=== PATIENT | female | born 1945 | race Caucasian/White ===

== ENCOUNTER 2016-10-21 08:58 | Inpatient (IN) | payer MEDICARE ==
[~2016-10-21 08:58] MED LIST: AMBI5TAB; ATEN1TAB73; LIBRAX PO; PREV15CA20 PO
[2016-10-21 09:00] VITALS: BP 160/72; PULSE 70; RESP 15; TEMP 98.6
[2016-10-21] MEDS ORDERED: SODIUM CHLORIDE 0.9% FLUSH 10 ML FLUSH IV FLUSH PRN ×2 (09:30→14:00)
[2016-10-21] MEDS ORDERED: ONDANSETRON HCL 4 MG/2 ML VIAL IVP ONE (09:30)
[2016-10-21 09:55] LABS: AUTOMATED NEUTROPHIL # 11.8 TH/MM3 (1.8-7.7); BASOPHIL % 0.2 % (0.0-2.0); HEMATOCRIT 42.7 % (35.0-46.0); HEMO FLAGS DIFF FINAL; LYMPH % 4.5 % (9.0-44.0); LYMPHOCYTE # 0.6 TH/MM3 (1.0-4.8); MEAN CELL VOLUME 90.6 FL (80.0-100.0); MEAN CORPUSCULAR HEMOGLOBIN 31.5 PG (27.0-34.0); MEAN CORPUSCULAR HGB CONC 34.8 % (32.0-36.0); MONO % 8.6 % (0.0-8.0); NEUT % 86.7 % (16.0-70.0); PLATELET COUNT 123 TH/MM3 (150-450); RED BLOOD COUNT 4.71 MIL/MM3 (4.00-5.30); WHITE BLOOD COUNT 13.7 TH/MM3 (4.0-11.0)
[2016-10-21 09:58] VITALS: O2SAT 97
[2016-10-21 10:02] LABS: BACTERIA, URINE FEW /hpf; BLOOD, URINE LARGE (NEG); COMMENT (UR) CULT NOT INDICATED; CULTURE IF INDICATED CULT NOT INDICATED; GLUCOSE,URINE TRACE mg/dL (NEG); KETONE, URINE 10 mg/dL (NEG); MUCUS URINE FEW /lpf (OCC); NITRITE,URINE NEG (NEG); SQUAMOUS EPITHELIAL CELL URINE <1 /hpf (0-5); URINE COLOR DARK-YELLOW (YELLW/STRAW)
[2016-10-21 10:16] LABS: ANION GAP 10 MEQ/L (5-15); BICARBONATE 27.2 MEQ/L (21.0-32.0); BLOOD UREA NITROGEN 13 MG/DL (7-18); CHLORIDE 102 MEQ/L (98-107); POTASSIUM 3.5 MEQ/L (3.5-5.1); SODIUM (NA) 139 MEQ/L (136-145)
[2016-10-21 10:32] LABS: ALKALINE PHOSPHATASE 148 U/L (45-117); ALT (GPT) 2074 U/L (10-53); AST (GOT) 2192 U/L (15-37); TOTAL BILIRUBIN ADULT 3.8 MG/DL (0.2-1.0)
[2016-10-21] MEDS ORDERED: PIPERACIL-TAZO 3.375 GM PREMIX 50 ML IV ONE (11:15)
[2016-10-21] MEDS ORDERED: SODIUM CHLOR 0.9% 1000 ML INJ 1,000 ML IV ONE (11:15)
--- NOTE | 2016-10-21 11:51 | PD ---
HPI Chief Complaint: GI Complaint Time Seen by Provider: 09:12 Travel History International Travel<30 days: No Contact w/Intl Traveler<30days: No History of Present Illness HPI 71-year-old female arrives to the ER complaining of epigastric abdominal pain. She developed a sudden heavy feeling in the epigastrium last night. She reported no benefit from Nexium. She reports frequent belching. She reports similar though much less severe pain following fatty foods previously. She's had no fever. The pain is much worse with palpation. At rest lying on the bed the patient has minimal to no pain. PFSH Past Medical History Hypertension: Yes Menopausal: Yes Social History Alcohol Use: Yes Tobacco Use: No Allergies-Medications (Allergen,Severity, Reaction): Coded Allergies: Demerol (Verified Allergy, Severe, nausea/passing out, 09/05/08) Dulcolax (Verified Allergy, Severe, passes out, 09/05/08) Novocain (Verified Allergy, Severe, increased heart rate, 09/05/08) Reported Meds & Prescriptions Reported Meds & Active Scripts Active Reported Ambien (Zolpidem Tartrate) 5 Mg Tab 0 Mg UNKNOWN DOSE Prevacid (Lansoprazole) 15 Mg Capcr 0 Mg PO DAILY UNKNOWN DOSE Librax (Chlordiazepoxide/Clidinium) 5 Mg Cap 5 Mg PO DIRECTED Tenormin (Atenolol) 25 Mg Tab 0 Mg UNKNOWN DOSE Review of Systems Except as stated in HPI: all other systems reviewed are Neg General / Constitutional: No: Fever Physical Exam Narrative GENERAL: 71-year-old female pleasant no acute distress SKIN: Focused skin assessment warm/dry. HEAD: Atraumatic. Normocephalic. EYES: Pupils equal and round. No scleral icterus. No injection or drainage. ENT: No nasal bleeding or discharge. Mucous membranes pink and moist. NECK: Trachea midline. No JVD. CARDIOVASCULAR: Regular rate and rhythm. No murmur appreciated. RESPIRATORY: No accessory muscle use. Clear to auscultation. Breath sounds equal bilaterally. GASTROINTESTINAL: Abdomen soft, non-tender, nondistended. Hepatic and splenic margins not palpable. MUSCULOSKELETAL: No obvious deformities. No clubbing. No cyanosis. No edema. NEUROLOGICAL: Awake and alert. No obvious cranial nerve deficits. Motor grossly within normal limits. Normal speech. PSYCHIATRIC: Appropriate mood and affect; insight and judgment normal. Data Data Last Documented VS Vital Signs Date Time Temp Pulse Resp B/P Pulse Ox O2 Delivery O2 Flow Rate FiO2 10/21/16 09:58 97 10/21/16 09:00 98.6 70 15 160/72 Vital signs reviewed Orders Complete Blood Count With Diff (10/21/16 09:26) Comprehensive Metabolic Panel (10/21/16:26) Lipase (10/21/16:26) Urinalysis - C+S If Indicated (10/21/16:) Ct Abd/Pel W Iv Contrast(Rout) (10/21/16:26) Iv Access Insert/Monitor (10/21/16:26) Ecg Monitoring (10/21/16:) Oximetry (10/21/16:) Ondansetron Inj (Zofran Inj) (10/21/16 09:30) Sodium Chloride 0.9% Flush (Ns Flush) (10/21/16 09:30) Sodium Chlor 0.9% 1000 Ml Inj (Ns 1000 M (10/21/16 11:15) Piperacil-Tazo 3.375 Gm Premix (Zosyn 3. (10/21/16 11:15) Iohexol 350 Inj (Omnipaque 350 Inj) (10/21/16 11:58) Consult Ryan Nfs (10/21/16 ) Admit Order (Ed Use Only) (10/21/16 13:18) Mri Mrcp W/O Contrast (10/21/16 ) Labs Laboratory Tests Test 10/21/16 09:40 White Blood Count 13.7 TH/MM3 Red Blood Count 4.71 MIL/MM3 Hemoglobin 14.8 GM/DL Hematocrit 42.7 % Mean Corpuscular Volume 90.6 FL Mean Corpuscular Hemoglobin 31.5 PG Mean Corpuscular Hemoglobin 34.8 % Concent Red Cell Distribution Width 13.0 % Platelet Count 123 TH/MM3 Mean Platelet Volume 9.3 FL Neutrophils (%) (Auto) 86.7 % Lymphocytes (%) (Auto) 4.5 % Monocytes (%) (Auto) 8.6 % Eosinophils (%) (Auto) 0.0 % Basophils (%) (Auto) 0.2 % Neutrophils # (Auto) 11.8 TH/MM3 Lymphocytes # (Auto) 0.6 TH/MM3 Monocytes # (Auto) 1.2 TH/MM3 Eosinophils # (Auto) 0.0 TH/MM3 Basophils # (Auto) 0.0 TH/MM3 CBC Comment DIFF FINAL Differential Comment Urine Color DARK-YELLOW Urine Turbidity CLEAR Urine pH 6.0 Urine Specific [place] 1.017 Urine Protein 30 mg/dL Urine Glucose (UA) TRACE mg/dL Urine Ketones 10 mg/dL Urine Occult Blood LARGE Urine Nitrite NEG Urine Bilirubin MOD Urine Urobilinogen 2.0 MG/DL Urine Leukocyte Esterase NEG Urine RBC 149 /hpf Urine WBC 2 /hpf Urine Squamous Epithelial <1 /hpf Cells Urine Bacteria FEW /hpf Urine Mucus FEW /lpf Microscopic Urinalysis Comment CULT NOT INDICATED Sodium Level 139 MEQ/L Potassium Level 3.5 MEQ/L Chloride Level 102 MEQ/L Carbon Dioxide Level 27.2 MEQ/L Anion Gap 10 MEQ/L Blood Urea Nitrogen 13 MG/DL Creatinine 0.92 MG/DL Random Glucose 137 MG/DL Calcium Level 8.9 MG/DL Total Bilirubin 3.8 MG/DL Aspartate Amino Transf 2192 U/L (AST/SGOT) Alanine Aminotransferase 2074 U/L (ALT/SGPT) Alkaline Phosphatase 148 U/L Total Protein 7.2 GM/DL Albumin 3.8 GM/DL Lipase 09519 U/L [facility] Medical Decision Making Medical Screen Exam Complete: Yes Emergency Medical Condition: Yes Medical Record Reviewed: Yes Differential Diagnosis Constipation, Gastritis, Acute Cholecystitis, Biliary Colic, Pancreatitis, ALARCON , Hepatitis, Bowel Obstruction, Cystitis, Mesenteric Ischemia, AAA, Appendicitis , Renal Stone/Hydronephrosis, GERD, perforated viscous Narrative Course CBC & BMP Diagram 10/21/16 09:40 Bilirubin 3.8 AST 2192 ALT 2074 Alk phosphatase 148 Lipase 16,660 Urinalysis reveals hematuria without UTI Last 24 hours Impressions Abdomen/Pelvis CT 10/21/16 0926 Signed Impressions: Service Date/Time: Friday, October 21, 2016 11:41 - CONCLUSION: 1. Steatosis. 2. Distended gallbladder with abnormal gallbladder wall thickening and cholelithiasis. 3. Pancreatic low attenuation masses are seen likely cystic but incompletely evaluated on this study. Minimal stranding in the peripancreatic fat is noted which can indicate mild pancreatitis. 4. Bilateral renal cysts. 5. Inguinal hernias. 6. Uterine fibroid. Benedicto Mcclure MD Patient has markedly elevated LFTs as well as lipase. CT is concerning for choledocholithiasis and or possibly cholecystitis. Zosyn and IV fluids started. The case was discussed with general surgery, Dr. Fischer. The case was discussed with Dr. Quigley. MRCP ordered. Pt will be admitted to FMR service, d/w Dr Judge. Critical Care Narrative Aggregate critical care time was 35 minutes. Time to perform other separately billable procedures was not included in the critical care time. My time did not include minutes spent treating any other patients simultaneously or on activities that did not directly contribute to the patient's treatment. The services I provided to this patient were to treat and/or prevent clinically significant deterioration that could result in: Septic shock, perforated bowel I provided critical care services requiring my management, as noted below: Chart data review, documentation time, medication orders and management, vital sign assessments/reviewing monitor data, ordering and reviewing lab tests, ordering and interpreting/reviewing x-rays and diagnostic studies, care of the patient and discussion of the patient with the admitting physicians. Critical care Diagnosis Primary Impression: Pancreatitis Qualified Code: K85.90 - Acute pancreatitis, unspecified complication status, unspecified pancreatitis type Additional Impressions: Hyperbilirubinemia Elevated LFTs Admitting Information Admitting Physician Requests: it Curt Higuera MD Oct 21, 2016 11:51
[2016-10-21] MEDS ORDERED: IOHEXOL 350 MG/ML 10 ML VIAL (for RAD DIAG) IV ONE (11:58)
--- NOTE | 2016-10-21 12:23 | RADRPT ---
EXAM DATE/TIME: 10/21/2016 11:41 [facility] COMPARISON: No previous studies available for comparison. INDICATIONS : Upper epigastric pain. IV CONTRAST: 68 cc Omnipaque 350 (iohexol) IV ORAL CONTRAST: No oral contrast ingested. RADIATION DOSE: 6.95 CTDIvol (mGy) MEDICAL HISTORY : Hypertension. SURGICAL HISTORY : None. ENCOUNTER: Initial ACUITY: 1 day PAIN SCALE: 5/10 LOCATION: Abdomen TECHNIQUE: Volumetric scanning of the abdomen and pelvis was performed. Using automated exposure control and ad justment of the mA and/or kV according to patient size, radiation dose was kept as low as reasonably achievable to obtain optimal diagnostic quality images. FINDINGS: There is a small hiatal hernia and hepatic steatosis. The adrenal glands, spleen are unremarkable. Th ere is a 11 mm low density mass mid body pancreas and an 8mm low density mass distal body pancreas li mane representing tiny cysts. There is mild induration in the peripancreatic fat suspect for mild acu te pancreatitis. The gallbladder is distended with wall thickening up to 13 mm. Cholelithiasis is not ed. There are multiple bilateral renal cysts, the largest at the right upper pole posteriorly measuri ng 7.7 x 7 m in transverse and AP dimension. Atherosclerotic calcification of the aorta and iliac ves sels are seen. Fat-containing inguinal hernias, right greater than left. Urinary bladder unremarkable . A fundal fibroid of the uterus is noted measuring 1.2 cm. No evidence of a bowel obstruction. Lung bases are clear. Degenerative changes of the spine are noted. CONCLUSION: 1. Steatosis. 2. Distended gallbladder with abnormal gallbladder wall thickening and cholelithiasis. 3. Pancreatic low attenuation masses are seen likely cystic but incompletely evaluated on this study. Minimal stranding in the peripancreatic fat is noted which can indicate mild pancreatitis. 4. Bilateral renal cysts. 5. Inguinal hernias. 6. Uterine fibroid. Benedicto Mcclure MD on October 21, 2016 at 12:18 Board Certified Radiologist. This report was verified electronically.
--- NOTE | 2016-10-21 13:21 | HHI.HP ---
[facility] Service Family Medicine Primary Care Physician Jamshid Cooney MD Admission Diagnosis Pancreatitis, Hyperbilirubinemia, Hepatitis Diagnoses: International Travel<30 Days: No Contact w/Intl Traveler<30days: No History of Present Illness 71 year old female presents with epigastric and right upper quadrant pain. She has a history of RUQ pain that occurs after greasy meals that has occurred intermittently over the last couple years. 2 days ago, she had sudden onset of right upper quadrant and epigastric pain. She noted a spastic, crampy, burning sensation in these areas. The areas felt heavy. She had decrease appetite. She had some nausea but no vomiting. She's had normal bowel movements. No chest pain , shortness of breath, vomiting, calf tenderness. She does not feel feverish. Review of Systems Constitutional: COMPLAINS OF: Change in appetite, DENIES: Diaphoretic episodes , Fatigue, Fever, Weight gain, Weight loss, Chills Endocrine: DENIES: Heat/cold intolerance, Polyuria Eyes: DENIES: Blurred vision Ears, nose, mouth, throat: DENIES: Throat pain, Running Nose Respiratory: DENIES: Cough, Sputum production, Shortness of breath Cardiovascular: DENIES: Chest pain, Dyspnea on Exertion Gastrointestinal: COMPLAINS OF: Abdominal pain, Nausea, DENIES: Black stools, Bloody stools, Constipation, Diarrhea, Vomiting Genitourinary: DENIES: Abnormal vaginal bleeding Musculoskeletal: DENIES: Joint Swelling, Back pain, Neck pain Integumentary: DENIES: Rash Hematologic/lymphatic: DENIES: Lymphadenopathy Immunologic/allergic: DENIES: Eczema Neurologic: DENIES: Paresthesias, Seizures, Speech Problems, Tremor Psychiatric: DENIES: Anxiety, Confusion, Mood changes, Depression Past Family Social History Past Medical History Atrial fibrillation PAC's Hypertension Past Surgical History None Reported Medications Losartan 25 mg qday Atenolol 100 mg qday Propafenone 75 mg bid Allergies: Coded Allergies: Demerol (Verified Allergy, Severe, nausea/passing out, 09/05/08) Dulcolax (Verified Allergy, Severe, passes out, 09/05/08) Novocain (Verified Allergy, Severe, increased heart rate, 09/05/08) Family History Mother: stomach ulcers, rheumatic heart disease Brother: age 77 from cardiac arrest, unknown cause Social History No smoking Occasional drinking 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 No JVD or lymphadenopathy. CARDIOVASCULAR: Regular rate and rhythm without murmurs, gallops, or rubs. RESPIRATORY: Clear to auscultation. Breath sounds equal bilaterally. No wheezes , rales, or rhonchi. Normal pulses. GASTROINTESTINAL: Pain on palpation of the right upper quadrant with positive Vergara's sign, some tenderness in the epigastric region. No masses. MUSCULOSKELETAL: Extremities without clubbing, cyanosis, or edema. No joint tenderness, effusion, or edema noted. No calf tenderness. Negative Homans sign bilaterally. NEUROLOGICAL: Awake and alert. Cranial nerves II through XII intact. Motor and sensory grossly within normal limits. Five out of 5 muscle strength in all muscle groups. Normal speech. Laboratory Laboratory Tests Test 10/21/16 09:40 White Blood Count 13.7 Red Blood Count 4.71 Hemoglobin 14.8 Hematocrit 42.7 Mean Corpuscular Volume 90.6 Mean Corpuscular Hemoglobin 31.5 Mean Corpuscular Hemoglobin 34.8 Concent Red Cell Distribution Width 13.0 Platelet Count 123 Mean Platelet Volume 9.3 Neutrophils (%) (Auto) 86.7 Lymphocytes (%) (Auto) 4.5 Monocytes (%) (Auto) 8.6 Eosinophils (%) (Auto) 0.0 Basophils (%) (Auto) 0.2 Neutrophils # (Auto) 11.8 Lymphocytes # (Auto) 0.6 Monocytes # (Auto) 1.2 Eosinophils # (Auto) 0.0 Basophils # (Auto) 0.0 CBC Comment DIFF FINAL Differential Comment Urine Color DARK-YELLOW Urine Turbidity CLEAR Urine pH 6.0 Urine Specific [place] 1.017 Urine Protein 30 Urine Glucose (UA) TRACE Urine Ketones 10 Urine Occult Blood LARGE Urine Nitrite NEG Urine Bilirubin MOD Urine Urobilinogen 2.0 Urine Leukocyte Esterase NEG Urine RBC 149 Urine WBC 2 Urine Squamous Epithelial <1 Cells Urine Bacteria FEW Urine Mucus FEW Microscopic Urinalysis Comment CULT NOT INDICATED Sodium Level 139 Potassium Level 3.5 Chloride Level 102 Carbon Dioxide Level 27.2 Anion Gap 10 Blood Urea Nitrogen 13 Creatinine 0.92 Random Glucose 137 Calcium Level 8.9 Total Bilirubin 3.8 Aspartate Amino Transf 2192 (AST/SGOT) Alanine Aminotransferase 2074 (ALT/SGPT) Alkaline Phosphatase 148 Total Protein 7.2 Albumin 3.8 Lipase 05572 Result Diagram: 10/21/1640 10/21/16939 Imaging Last 72 hours Impressions Abdomen/Pelvis CT 10/21/16925 Signed Impressions: Service Date/Time: Friday, October 21, 2016 11:41 - CONCLUSION: 1. Steatosis. 2. Distended gallbladder with abnormal gallbladder wall thickening and cholelithiasis. 3. Pancreatic low attenuation masses are seen likely cystic but incompletely evaluated on this study. Minimal stranding in the peripancreatic fat is noted which can indicate mild pancreatitis. 4. Bilateral renal cysts. 5. Inguinal hernias. 6. Uterine fibroid. Benedicto Mcclure MD Septic Shock Reassessment Heart: Regular rate and rhythm Lungs: Clear Skin: Warm Capillary Refill: <2 seconds Assessment and Plan Assessment and Plan 71 year old female presents with RUQ and epigastric pain with evidence of biliary obstruction, possible cholecystitis, cholelithiasis, pancreatitis Code Status FULL Discussed Condition With Discussed with Dr. Valdes, Dr. Judge, Dr. Marilyn Chiu Problem List: (1) Acute gallstone pancreatitis Status: Acute Plan: Leukocytosis, no fevers. Total bili is 3.8. AST/ALT are 2192/2074. ALP is 148. Lipase [address]. CT showing steatosis, distended gallbladder, gallbladder wall thickening, cholelithiasis. Peripancreatic fat stranding suggesting pancreatitis. Low attenuation masses seen on pancreas, likely cystic but incompletely evaluated. Likely etiology is common bile duct obstruction with gallstone. - General surgery consulted. - Keep NPO - MRCP ordered - Pain management with Percocet, Ibuprofen, Dilaudid for breakthrough pain - Fluids at 150 mls/hr of normal saline, monitor hydration status - Monitor vital signs and labs. - Definitive management deferred to general surgery team. - Hepatitis profile due to elevated LFT's, but likely from duct obstruction (2) Acute cholecystitis Status: Acute Plan: See plan above (3) Atrial fibrillation Status: Chronic Plan: On examination, regular rate and rhythm - Continue propafenone and atenolol from home - Not currently on anticoagulation (4) No contraindication to deep vein thrombosis (DVT) prophylaxis Status: Acute Plan: Hold heparin in case of procedure Bilateral SCD's (5) Nutrition, metabolism, and development symptoms Status: Acute Plan: NS 150 mls/hr Monitor electrolytes NPO Physician Certification 2 Midnight Certification Type: Admission for Inpatient Services Order for Inpatient Services The services are ordered in accordance with Medicare regulations or non- Medicare payer requirements, as applicable. In the case of services not specified as inpatient-only, they are appropriately provided as inpatient services in accordance with the 2-midnight benchmark. Estimated LOS (days): 3 days is the estimated time the patient will need to remain in the hospital, assuming treatment plan goals are met and no additional complications. Post-Hospital Plan: Home Micky Torres MD R2 Oct 21, 2016 13:21
[2016-10-21] MEDS ORDERED: HYDROmorphone HCL PF 1 MG/ML VIAL IV PRN (14:00)
[2016-10-21] MEDS ORDERED: oxyCODONE/ACETAMINOPHEN 5 MG/325 MG TAB PO PRN (14:00)
[2016-10-21] MEDS ORDERED: oxyCODONE/ACETAMINOPHEN 10 MG/325 MG TAB PO PRN (14:00)
[2016-10-21] MEDS ORDERED: SENNOSIDES 8.6 MG TAB PO PRN (14:00)
[2016-10-21] MEDS ORDERED: NALOXONE HCL 0.4 MG/ML AMP IV PRN (14:00)
[2016-10-21] MEDS ORDERED: ONDANSETRON HCL 4 MG/2 ML VIAL IV PRN (14:00)
--- NOTE | 2016-10-21 14:57 | RADRPT ---
EXAM DATE/TIME: 10/21/2016 14:03 [facility] COMPARISON: CT ABDOMEN & PELVIS W CONTRAST, October 21, 2016, 11:41. INDICATIONS : Abdominal pain. MEDICAL HISTORY : Hypertension. SURGICAL HISTORY : Broken wrist. ENCOUNTER: Initial ACUITY: 1 day PAIN SCORE: 4/10 LOCATION: abdomen TECHNIQUE: Multiplanar, multisequence magnetic resonance imaging of the abdomen was performed. High-resolution 3D dataset was utilized to reconstruct maximum-intensity projection (MIP) images. FINDINGS: INTRAHEPATIC BILE DUCTS: Within normal limits. No significant anatomical variant is present. EXTRAHEPATIC BILE DUCTS: The common hepatic and common bile duct are normal measuring between 3 and 4 mm. No stone or filling defect is identified. GALLBLADDER: Gallbladder is very distended with wall thickening and edema and mild pericholecystic inflammation. T here are small layering stones in the fundus. LIVER: The liver measures 18.6 cm in length and demonstrates moderate to severe signal loss on phase imaging characteristic of steatosis. No focal liver lesion is appreciated. There is mild periportal edema. PANCREAS: The main pancreatic duct is normal in size. There is no significant anatomical variant. Signal inte nsity is within normal limits. No solid mass is visualized on this non-contrast exam. There are 2 cy stic lesions in the pancreatic body measuring 8 mm and 12 mm. Secondary to image quality I cannot be certain of these connect with the main duct. There is mild peripancreatic edema/fluid. OTHER: There is mild edema/fluid surrounding the duodenal C-loop. A small hiatal hernia is present. There ar e bilateral renal sinus cysts along with cortical cysts with the largest in the right upper pole kidn ey measuring 7.6 cm. CONCLUSION: 1. Abnormal gallbladder which is distended and demonstrates wall thickening with wall edema and likel y mild pericholecystic inflammation. There are layering small stones in the fundus. Findings are susp icious for acute cholecystitis.No common duct stones are identified. 2. There is also mild edema around the pancreas and duodenum. This could indicate mild acute pancreat itis. Suggest correlation with the laboratory values. 3. There are 2 cystic lesions in the body the pancreas measuring up to 12 mm. They have a simple appe arance and I cannot demonstrate a definite connection with the main pancreatic duct on this examinati on. If no prior imaging studies are available suggest a 12 month followup MRCP to confirm stability. 4. Mild hepatomegaly with moderate to severe steatosis. Edmundo Moon MD on October 21, 2016 at 14:47 Board Certified Radiologist. This report was verified electronically.
[2016-10-21] MEDS: IBUPROFEN 400 MG TAB PO PRN (15:20)
[2016-10-21 15:56] VITALS: BP 135/75
[2016-10-21] MEDS: DOCUSATE SODIUM 100 MG CAP PO SCH (16:00)
--- NOTE | 2016-10-21 16:07 | PD.CONS ---
HPI History of Present Illness This is a 71 year old female with past medical history of HTN, A-fib, on Aspirin who is here with severe epigastric pain since last night, this is described as gnawing, hunger pain, she tried to offset it with Nexium and Zantac without relief. She denies vomiting, change in bowels, or dark urine. She reports fevers, nausea, decreased appetite. She reports a history of epigastric pain that occurs after greasy meals that has occurred intermittently over the last couple years. In the ED, labs revealed WBC of 13.7 , Bili 3.8, AST 2192, ALT 2074, lipase [address]887. CT on (10/21/16) Steatosis. 2. Distended gallbladder with abnormal gallbladder wall thickening and cholelithiasis. 3. Pancreatic low attenuation masses are seen likely cystic but incompletely evaluated on this study. Minimal stranding in the peripancreatic fat is noted which can indicate mild pancreatitis. 4. Bilateral renal cysts. 5. Inguinal hernias. 6. Uterine fibroid. MRCP on (10/21/16) showed 1. Abnormal gallbladder which is distended and demonstrates wall thickening with wall edema and likely mild pericholecystic inflammation. There are layering small stones in the fundus. Findings are suspicious for acute cholecystitis.No common duct stones are identified. 2. There is also mild edema around the pancreas and duodenum. This could indicate mild acute pancreatitis. Suggest correlation with the laboratory values. 3. There are 2 cystic lesions in the body the pancreas measuring up to 12 mm. They have a simple appearance and I cannot demonstrate a definite connection with the main pancreatic duct on this examination. If no prior imaging studies are available suggest a 12 month followup MRCP to confirm stability. 4. Mild hepatomegaly with moderate to severe steatosis. Patient denies previous history of this. She denies alcohol intake, denies any new medications at home. She never had EGD/colonoscopy before. . (Jorge L Giron) PFSH Past Medical History HTN A-fib Past Surgical History None (Jorge L Giron) Coded Allergies: Demerol (Verified Allergy, Severe, nausea/passing out, 09/05/08) Dulcolax (Verified Allergy, Severe, passes out, 09/05/08) Novocain (Verified Allergy, Severe, increased heart rate, 2/23/09) Medications Current Medications Medications (Trade) Dose Ordered Sig/Tacho Route Start Time Stop Time Status Last Admin (NS 1000 ml Inj) 1,000 ml @ 150 mls/hr Q6H40M IV 10/21/16 14:00 (NS Flush) 2 ml UNSCH PRN IV FLUSH 10/21/16 14:00 (NS Flush) 2 ml BID IV FLUSH 10/21/16 21:00 (Zofran Inj) 4 mg Q6H PRN IV 10/21/16 14:00 (Colace) 100 mg Q12H PO 10/21/16 16:00 (Senokot) 17.2 mg Q12H PRN PO 10/21/16 14:00 (Motrin) 400 mg Q6H PRN PO 10/21/16 14:00 10/21/16 15:20 (Percocet 5-325 Mg) 1 tab Q6H PRN PO 10/21/16 14:00 (Percocet 10-325 Mg) 1 tab Q6H PRN PO 10/21/16 14:00 (Dilaudid Pf Inj) 1 mg Q3H PRN IV 10/21/16 14:00 Naloxone HCl 0.4 mg 0.4 mg UNSCH PRN IV 10/21/16 14:00 (Zosyn 3.375 Gm Premix) 50 ml @ 100 mls/hr Q6H IV 10/21/16 18:00 Family History Her mother always had GI issues Social History Denies alcohol Denies smoking Denies illicit drug use (Jorge L Giron) Review of Systems Constitutional: COMPLAINS OF: Fever Endocrine: DENIES: Polyuria Eyes: DENIES: Double Vision Ears, nose, mouth, throat: DENIES: Hoarseness Respiratory: DENIES: Shortness of breath Cardiovascular: DENIES: Lower Extremity Edema Gastrointestinal: COMPLAINS OF: Abdominal pain, Nausea, DENIES: Black stools, Bloody stools, Constipation, Diarrhea, Difficulty Swallowing, Anorexia, Odynophagia, Swelling of Abdomen, Heartburn, Hematemesis Genitourinary: COMPLAINS OF: Hematuria Musculoskeletal: DENIES: Neck pain Integumentary: DENIES: Jaundice Hematologic/lymphatic: DENIES: Bruising Immunologic/allergic: DENIES: Eczema Neurologic: DENIES: Abnormal gait Psychiatric: DENIES: Anxiety (Jorge L Giron) GI Exam Vitals I&O Vital Signs Date Time Temp Pulse Resp B/P Pulse Ox O2 Delivery O2 Flow Rate FiO2 10/21/16 09:58 97 10/21/16 09:00 98.6 70 15 160/72 Imaging Last Impressions Abdomen/Pelvis CT 10/21/16925 Signed Impressions: Service Date/Time: Friday, October 21, 2016 11:41 - CONCLUSION: 1. Steatosis. 2. Distended gallbladder with abnormal gallbladder wall thickening and cholelithiasis. 3. Pancreatic low attenuation masses are seen likely cystic but incompletely evaluated on this study. Minimal stranding in the peripancreatic fat is noted which can indicate mild pancreatitis. 4. Bilateral renal cysts. 5. Inguinal hernias. 6. Uterine fibroid. Benedicto Mcclure MD Cholangiopancreatography MRI 10/21/16 0000 Signed Impressions: Service Date/Time: Friday, October 21, 2016 14:03 - CONCLUSION: 1. Abnormal gallbladder which is distended and demonstrates wall thickening with wall edema and likely mild pericholecystic inflammation. There are layering small stones in the fundus. Findings are suspicious for acute cholecystitis.No common duct stones are identified. 2. There is also mild edema around the pancreas and duodenum. This could indicate mild acute pancreatitis. Suggest correlation with the laboratory values. 3. There are 2 cystic lesions in the body the pancreas measuring up to 12 mm. They have a simple appearance and I cannot demonstrate a definite connection with the main pancreatic duct on this examination. If no prior imaging studies are available suggest a 12 month followup MRCP to confirm stability. 4. Mild hepatomegaly with moderate to severe steatosis. Edmundo Moon MD Laboratory Test 10/21/16 09:40 White Blood Count 13.7 TH/MM3 Red Blood Count 4.71 MIL/MM3 Hemoglobin 14.8 GM/DL Hematocrit 42.7 % Mean Corpuscular Volume 90.6 FL Mean Corpuscular Hemoglobin 31.5 PG Mean Corpuscular Hemoglobin 34.8 % Concent Red Cell Distribution Width 13.0 % Platelet Count 123 TH/MM3 Mean Platelet Volume 9.3 FL Neutrophils (%) (Auto) 86.7 % Lymphocytes (%) (Auto) 4.5 % Monocytes (%) (Auto) 8.6 % Eosinophils (%) (Auto) 0.0 % Basophils (%) (Auto) 0.2 % Neutrophils # (Auto) 11.8 TH/MM3 Lymphocytes # (Auto) 0.6 TH/MM3 Monocytes # (Auto) 1.2 TH/MM3 Eosinophils # (Auto) 0.0 TH/MM3 Basophils # (Auto) 0.0 TH/MM3 CBC Comment DIFF FINAL Differential Comment Urine Color DARK-YELLOW Urine Turbidity CLEAR Urine pH 6.0 Urine Specific [place] 1.017 Urine Protein 30 mg/dL Urine Glucose (UA) TRACE mg/dL Urine Ketones 10 mg/dL Urine Occult Blood LARGE Urine Nitrite NEG Urine Bilirubin MOD Urine Urobilinogen 2.0 MG/DL Urine Leukocyte Esterase NEG Urine RBC 149 /hpf Urine WBC 2 /hpf Urine Squamous Epithelial <1 /hpf Cells Urine Bacteria FEW /hpf Urine Mucus FEW /lpf Microscopic Urinalysis Comment CULT NOT INDICATED Sodium Level 139 MEQ/L Potassium Level 3.5 MEQ/L Chloride Level 102 MEQ/L Carbon Dioxide Level 27.2 MEQ/L Anion Gap 10 MEQ/L Blood Urea Nitrogen 13 MG/DL Creatinine 0.92 MG/DL Random Glucose 137 MG/DL Calcium Level 8.9 MG/DL Total Bilirubin 3.8 MG/DL Aspartate Amino Transf 2192 U/L (AST/SGOT) Alanine Aminotransferase 2074 U/L (ALT/SGPT) Alkaline Phosphatase 148 U/L Total Protein 7.2 GM/DL Albumin 3.8 GM/DL Lipase 71906 U/L Physical Examination HEENT: normocephalic; atraumatic; no jaundice. Throat is clear. NECK: Neck is supple, no JVD, no lymphadenopathy. CHEST: Chest is clear to auscultation and percussion. CARDIAC: Regular rate and rhythm with no murmur gallop or rubs. ABDOMEN: Soft, nondistended, epigastric tenderness; no hepatosplenomegaly; bowel sounds are present in all four quadrants. EXTREMITIES: No clubbing, cyanosis, or edema. SKIN: Normal; no rash; no jaundice. CLEANING LABORER: No focal deficits; alert and oriented times three. (Jorge L Giron) Assessment and Plan Plan - Pancreatitis/epigastric pain- most likely gallstones pancreatitis, lipase 24489, WBC of 13.7, Bili 3.8, AST 2192, ALT 2074, CT on (10/21/16) Steatosis. 2. Distended gallbladder with abnormal gallbladder wall thickening and cholelithiasis. 3. Pancreatic low attenuation masses are seen likely cystic but incompletely evaluated on this study. Minimal stranding in the peripancreatic fat is noted which can indicate mild pancreatitis. 4. Bilateral renal cysts. 5. Inguinal hernias. 6. Uterine fibroid. MRCP on (10/21/16) showed 1. Abnormal gallbladder which is distended and demonstrates wall thickening with wall edema and likely mild pericholecystic inflammation. There are layering small stones in the fundus. Findings are suspicious for acute cholecystitis.No common duct stones are identified. 2. There is also mild edema around the pancreas and duodenum. This could indicate mild acute pancreatitis. Suggest correlation with the laboratory values. 3. There are 2 cystic lesions in the body the pancreas measuring up to 12 mm. They have a simple appearance and I cannot demonstrate a definite connection with the main pancreatic duct on this examination. If no prior imaging studies are available suggest a 12 month followup MRCP to confirm stability. 4. Mild hepatomegaly with moderate to severe steatosis. Patient denies previous history of this. She denies alcohol intake, denies any new medications at home. She never had EGD/colonoscopy before. - leukocytosis- on Zosyn, secondary to above - Acute cholecystitis- GS on the case - Elevated liver enzymes- secondary to above, will order the rest of liver work up - Pancreatic cysts- imaging as above - HTN, A-fib per attending Plan: - NPO - IV hydration/ pain meds - GS on the case - Triglycerides, ADAIR, ASMA, AMA, ceruloplasmin, celiac, hepatitis panel,iron studies - Lipase, LFTs in am - will need EGD at one point once medically stable - PPI - Supportive care - Patient seen and examined by Dr. Longo and myself and this note is written on his behalf. (Jorge L Giron) Physician Comments patient was seen and examined, agree with above note, MRCP does not show CBD stones, but pancreatitis and possible cholecystitis. patient is not interested in EGD or colonoscopy (she has anemia) sever elevated LFTs, we will check liver W/U but will need lap atif. pancreatitis most likely biliary, continue supportive care. (Jose Longo MD) Jorge L Giron Oct 21, 2016 16:07 Jose Longo MD Oct 21, 2016 17:44
[2016-10-21 16:45] LABS: TRANSFERRIN IRON PROFILE 303 MG/DL (200-360)
[2016-10-21 17:00] LABS: FERRITIN 2880 NG/ML (8-252)
[2016-10-21] MEDS: PANTOPRAZOLE SODIUM 40 MG VIAL IV PUSH SCH (17:00)
[2016-10-21] MEDS: PIPERACIL-TAZO 3.375 GM PREMIX 50 ML IV SCH (18:00)
[2016-10-21 18:01] VITALS: BP 142/67; PULSE 68; RESP 16; TEMP 97.8; O2SAT 97
[2016-10-21 20:00] VITALS: BP 112/64; PULSE 65; RESP 17; TEMP 97.6; O2SAT 96
[2016-10-21] MEDS ORDERED: PROP150T PO (20:04)
[2016-10-21] MEDS ORDERED: ASPI-110 PO (20:04)
[2016-10-21] MEDS ORDERED: LOSA25TA PO (20:04)
[2016-10-21] MEDS ORDERED: ATEN100T PO (20:04)
[2016-10-21] MEDS ORDERED: PILL SPLITTER OTHER PRN (20:15)
[2016-10-21] MEDS: ATENOLOL 100 MG TAB PO SCH (20:46)
[2016-10-21] MEDS: ASPIRIN EC 81 MG TABEC PO SCH (20:46)
[2016-10-21] MEDS: SODIUM CHLORIDE 0.9% FLUSH 10 ML FLUSH IV FLUSH SCH (20:46)
[2016-10-21] MEDS: LOSARTAN 25 MG TAB PO SCH (20:46)
[2016-10-21] MEDS: PROPAFENONE HCL 150 MG TAB PO SCH (20:47)
[2016-10-21] MEDS: SODIUM CHLOR 0.9% 1000 ML INJ 1,000 ML IV SCH (20:48)
[2016-10-22] VITALS: BP 107/65; PULSE 63; RESP 18; TEMP 97.4; O2SAT 94
--- NOTE | 2016-10-22 00:05 | MB ---
cc: JAMES MCCORMACK MD DATE OF CONSULTATION 10/21/16 REASON FOR CONSULTATION Cholelithiasis, gallstone pancreatitis. HISTORY OF PRESENT ILLNESS The patient is a 71-year-old female with several medical issues including atrial fibrillation, hypertension. She presents with a severe epigastric abdominal pain and right-sided pain. She states the pain started several days ago, approximately 24 hours and continued to get worse. She states the pain was an 8 out of 10, constant, some radiation to the right side, a sharp and not relieved with Nexium or Zantac. Therefore, she came to emergency department for further workup including CT scan showing small cyst in pancreas, edematous pancreas with gallbladder sludge. She had laboratory values of total bili of 3.8, AST, ALT in the lipase 16,660. Therefore, surgery was consulted for further evaluation. On my exam the patient is stable. However, she is complaining of gnawing epigastric pain and states that the pain has been going on for some time now. She denies any previous history of pancreatitis and denies any significant EtOH intake. She further denies vomiting, change in bowel habits. She did have subjective fevers, nausea and decreased appetite. PAST MEDICAL HISTORY Atrial fibrillation, hypertension. PAST SURGICAL HISTORY The patient has no surgeries. ALLERGIES DEMEROL, DULCOLAX, NOVOCAINE. MEDICATIONS See EMR. FAMILY HISTORY Mother with gastrointestinal issues. SOCIAL HISTORY Occasional EtOH. Denies smoking or IVDA. REVIEW OF SYSTEMS GENERAL: Denies headache. Complains of subjective fever. HEENT: Denies eye pain, ear pain. NECK: Denies swelling or pain. CARDIOVASCULAR: Irregular heart beat. Denies palpitation or chest pain. GI: Complains of nausea, denies vomiting. Complained of abdominal pain. : Denies dysuria, hematuria. MUSCULOSKELETAL: Denies arthralgia, myalgia. INTEGUMENT: Denies jaundice or skin lesions. HEMATOLOGY: Denies bruising or hemarthrosis. ENDOCRINE: Denies polyuria, polydipsia. : Denies dysuria, hematuria. NEUROLOGIC: Denies change in gait or numbness. PSYCH: Denies anxiety or change in mood. PHYSICAL EXAMINATION GENERAL: The patient is in no acute distress. VITAL SIGNS: Temperature 98.6, pulse 70, respiration 15, blood pressure 116/72, saturation 97% on room air. HEENT: PERRLA, pupils equal, round, reactive. No scleral icterus. NECK: Trachea midline, supple. LUNGS: Clear to auscultation bilaterally. Bilateral expansion. HEART: S1-S2, no murmur. ABDOMEN: Soft, positive tenderness to palpation epigastric right upper quadrant. EXTREMITIES: Warm, well-perfused. NEUROLOGIC: GCS of 15, A and O x 4. 5/5 motor. INTEGUMENT: No obvious skin rashes or lesions. PSYCH: Good insight, good judgment. LABORATORY AND DIAGNOSTIC DATA WBC 13.7, hemoglobin 14.8, hematocrit 42.7, platelet 123, sodium 139, potassium 3.5, chloride 102, BUN 13, creatinine 0.92, glucose 13, calcium 8.9, T-bili 3.8, AST 2192, ALT 2034, alkaline phos is 148, albumin 3.8, lipase is 16,600. CT scan reviewed by myself steatosis, distended gallbladder with thickening cholelithiasis sludge, low pancreatic attenuation suspect of pancreatitis, small cyst noted, renal cyst noted, inguinal hernias noted. ASSESSMENT The patient is a 71-year-old female with epigastric right upper quadrant pain, gallstone pancreatitis, transaminitis. ASSESSMENT/PLAN A full clinical radiologic laboratory workup the patient with the above-named issues including gallstone pancreatitis. At this point recommend admission to the hospital for pain control, IV fluids, bowel rest, n.p.o. Recommend recheck labs. Recommend consultation with gastroenterology and further. Will obtain MRCP to further evaluate the common bile duct and biliary system. We will consider laparoscopic cholecystectomy following resolution of acute pancreatitis and following further workup and following gastroenterology recommendations. MD DESIRE Verdugo/DORCAS /8:36 PM /11:49 PM
[2016-10-22] MEDS: PIPERACIL-TAZO 3.375 GM PREMIX 50 ML IV SCH ×4 (00:07→18:14)
[2016-10-22] MEDS: DOCUSATE SODIUM 100 MG CAP PO SCH ×2 (04:00→16:00)
[2016-10-22] MEDS: SODIUM CHLOR 0.9% 1000 ML INJ 1,000 ML IV SCH ×4 (04:09→21:22)
--- NOTE | 2016-10-22 07:35 | HHI.FPPN ---
Subjective Remarks Barbara Vang is a 71yo lady with history significant for HTN and A fib admitted for RUQ pain. She has had RUQ pain after greasy, heavy meals x 2 years, but for the past two days she had sudden onset of RUQ pain and epigastric pain. Described as crampy, spasm, burning. + decreased appetite. + nausea, no vomiting. Normal BMs. No fevers. For further details, please see resident H&P. This morning, she reports abdominal pain has resolved. No significant nausea. She is tolerating sips of coffee. She has a mild headache from caffeine withdrawal. ROS: + mild nausea, + mild headache. No jaundice, no itching of skin. Abdominal pain has resolved. No fevers. All other systems reviewed are negative. PMH/PSxH/SocHx/FamHx: Per resident H&P. Significant for: A fib, HTN. No prior surgeries. Mother w/ stomach ulcers. 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 No tobacco use. Occasional/social alcohol use. Objective Vitals Vital Signs Date Time Temp Pulse Resp B/P Pulse Ox O2 Delivery O2 Flow Rate FiO2 10/22/16 00:00 97.4 63 18 107/65 94 10/21/16 20:00 97.6 65 17 112/64 96 10/21/16 18:01 97.8 68 16 142/67 97 10/21/16 17:31 18 10/21/16 15:56 70 18 135/75 97 10/21/16 09:58 97 10/21/16 09:00 98.6 70 15 160/72 I/O 10/21/16 10/21/16 10/21/16 10/22/16 10/22/16 10/22/16 07:00 15:00 23:00 07:00 15:00 23:00 Intake Total 795 ml 1223 ml Balance 795 ml 1223 ml Intake Oral 0 ml 0 ml IV Total 795 ml 1223 ml # Voids 3 2 # Bowel Movements 0 0 Result Diagram: 10/21/1640 10/21/1640 Objective Remarks GENERAL: in NAD, no resp distress, nontoxic. Sitting comfortably in bed and changes from supine to sit without difficulty. HEENT: NCAT, EOMI, no scleral icterus, no conjunctival injection. MMM. NECK: Supple, no meningeal signs. CV: RRR, S1 S2. No murmurs CHEST/PULM: CTAB, no crackles, no wheezes ABD/GI: +BS, soft, nondistended. Mild tenderness to palpation at RUQ and epigastrium, with mildly + Vergara's sign. No rebound, no guarding. EXT: 2+ DP pulses. No calf tenderness. No edema. NEURO: Awake, alert. Normal muscle tone. Grossly within normal limits. SKIN: No rashes, no jaundice. PSYCH: Mood and affect are appropriate. Speech fluent. A/P Assessment and Plan 71 year old female presents with RUQ and epigastric pain with evidence of biliary obstruction, possible cholecystitis, cholelithiasis, pancreatitis Attending Attestation Patient seen, examined, and discussed with resident team. The patient has been seen and examined. The chart and all resident notes have been reviewed. I agree that inpatient care is appropriate and that a two midnight stay is expected for the reasons documented in the resident history and physical. I have discussed this with the resident and certify the resident s order for inpatient admission. Problem List: (1) Acute gallstone pancreatitis Status: Acute Plan: Work up at presentation: Total bili is 3.8. AST/ALT are 2192/2074. ALP is 148. Lipase [address]. CT showing steatosis, distended gallbladder, gallbladder wall thickening, cholelithiasis. Peripancreatic fat stranding suggesting pancreatitis. Low attenuation masses seen on pancreas, likely cystic but incompletely evaluated. Likely etiology is common bile duct obstruction with gallstone. - MRCP: 1. Abnormal gallbladder which is distended and demonstrates wall thickening with wall edema and likely pericholecystic inflammation. There are layering small stones in the fundus. Findings are suspicious for acute cholecystitis. No common duct stones are identified. 2. There is also mild edema around the pancreas and duodenum. This could indicate mild acute pancreatitis. 3. There are 2 cystic lesions in the body of the pancreas measuring up to 12mm. They have a simple appearance and I cannot demonstrate a definite connection with the main pancreatic duct on this examination. If no prior imaging studies are available, suggest a 12 month follow up MRCP to confirm stability. 4. Mild hepatomegaly with moderate to severe steatosis. - GI has been consulted. Pt has deferred/declined EGD at this time. Await labs as ordered by GI. - General surgery consulted, who recommends lap atif once AST/ALT and lipase improve. - Clear liquids started this AM by surgery - Pain management with Percocet, Ibuprofen, Dilaudid for breakthrough pain - Fluids at 150 mls/hr of normal saline, monitor hydration status - Monitor vital signs and labs. (2) Acute cholecystitis Status: Acute Plan: See plan above. (3) Cyst of pancreas Status: Chronic Plan: Appears benign per MRCP as above. Pt will need repeat MRCP in 12 months to confirm stability of cysts. (4) Atrial fibrillation Status: Chronic Plan: On examination, regular rate and rhythm - rate and rhythm controlled - Continue propafenone and atenolol from home. - Not currently on anticoagulation. CHADS-Vasc score is 3; patient may benefit from anticoagulation in the future postoperatively. (5) Leukocytosis Status: Resolved Plan: Secondary to above. On zosyn for GI coverage. Afebrile. Will monitor. (6) Thrombocytopenia Status: Chronic Plan: Suspect chronic thrombocytopenia. No obvious active bleeding. Will monitor. (7) Hypertension Status: Chronic Plan: Continue current regimen. Blood pressure is controlled. Mohini Valdes MD Oct 22, 2016 07:35 Status: Acute Mohini Valdes MD Oct 22, 2016 07:35
[2016-10-22] MEDS: PROPAFENONE HCL 150 MG TAB PO SCH ×2 (07:38→21:21)
[2016-10-22 07:50] VITALS: BP 119/68; PULSE 66; RESP 18; TEMP 97.6; O2SAT 95
[2016-10-22] MEDS: SODIUM CHLORIDE 0.9% FLUSH 10 ML FLUSH IV FLUSH SCH ×2 (07:54→21:00)
[2016-10-22 07:56] LABS: AUTOMATED NEUTROPHIL # 4.4 TH/MM3 (1.8-7.7); BASOPHIL % 0.3 % (0.0-2.0); EOSINOPHIL % 0.5 % (0.0-4.0); HEMATOCRIT 36.1 % (35.0-46.0); LYMPH % 21.1 % (9.0-44.0); LYMPHOCYTE # 1.3 TH/MM3 (1.0-4.8); MEAN CELL VOLUME 90.9 FL (80.0-100.0); MEAN CORPUSCULAR HEMOGLOBIN 31.5 PG (27.0-34.0); MEAN CORPUSCULAR HGB CONC 34.7 % (32.0-36.0); MONO % 8.8 % (0.0-8.0); NEUT % 69.3 % (16.0-70.0); PLATELET COUNT 89 TH/MM3 (150-450); RED BLOOD COUNT 3.98 MIL/MM3 (4.00-5.30); WHITE BLOOD COUNT 6.3 TH/MM3 (4.0-11.0)
[2016-10-22 07:57] LABS: HEMO FLAGS AUTO DIFF
[2016-10-22 08:26] LABS: ALKALINE PHOSPHATASE 116 U/L (45-117); ANION GAP 11 MEQ/L (5-15); AST (GOT) 673 U/L (15-37); BICARBONATE 20.6 MEQ/L (21.0-32.0); BLOOD UREA NITROGEN 10 MG/DL (7-18); CHLORIDE 112 MEQ/L (98-107); GLOMERULAR FILTRATION RATE 77 ML/MIN (>89); POTASSIUM 3.3 MEQ/L (3.5-5.1); SODIUM (NA) 144 MEQ/L (136-145); TOTAL BILIRUBIN ADULT 2.4 MG/DL (0.2-1.0)
[2016-10-22 08:34] LABS: ALT (GPT) 1076 U/L (10-53)
[2016-10-22 08:47] LABS: SCAN/DIFF AUTO DIFF CONFIRMED
[2016-10-22] MEDS ORDERED: POTASSIUM CHLOR 20 MEQ PREMIX 100 ML IV ONE (09:00)
[2016-10-22 11:35] VITALS: BP 148/63; PULSE 63; RESP 17; TEMP 96; O2SAT 99
--- NOTE | 2016-10-22 15:24 | HHI.GIFU ---
Subjective Remarks Pt sitting up in chair visiting with friend. Says her pain has improved. Denies abdominal pain, n/v, change in bowel habits. Objective Vitals I&O Vital Signs Date Time Temp Pulse Resp B/P Pulse Ox O2 Delivery O2 Flow Rate FiO2 10/22/16 11:35 96.0 63 17 148/63 99 10/22/16 07:50 97.6 66 18 119/68 95 10/22/16 00:00 97.4 63 18 107/65 94 10/21/16 20:00 97.6 65 17 112/64 96 10/21/16 18:01 97.8 68 16 142/67 97 10/21/16 17:31 18 10/21/16 15:56 70 18 135/75 97 I/O 10/21/16 10/21/16 10/21/16 10/22/16 10/22/16 10/22/16 07:00 15:00 23:00 07:00 15:00 23:00 Intake Total 795 ml 1223 ml Balance 795 ml 1223 ml Intake Oral 0 ml 0 ml IV Total 795 ml 1223 ml # Voids 3 2 # Bowel Movements 0 0 Laboratory Laboratory Tests Test 10/21/16 10/22/16 10/22/16 18:12 06:30 07:26 Lactic Acid Level 1.2 Transferrin 205 White Blood Count 6.3 Red Blood Count 3.98 Hemoglobin 12.5 Hematocrit 36.1 Mean Corpuscular Volume 90.9 Mean Corpuscular Hemoglobin 31.5 Mean Corpuscular Hemoglobin 34.7 Concent Red Cell Distribution Width 13.0 Platelet Count 89 Mean Platelet Volume 9.3 Neutrophils (%) (Auto) 69.3 Lymphocytes (%) (Auto) 21.1 Monocytes (%) (Auto) 8.8 Eosinophils (%) (Auto) 0.5 Basophils (%) (Auto) 0.3 Neutrophils # (Auto) 4.4 Lymphocytes # (Auto) 1.3 Monocytes # (Auto) 0.6 Eosinophils # (Auto) 0.0 Basophils # (Auto) 0.0 CBC Comment AUTO DIFF Differential Comment AUTO DIFF CONFIRMED Sodium Level 144 Potassium Level 3.3 Chloride Level 112 Carbon Dioxide Level 20.6 Anion Gap 11 Blood Urea Nitrogen 10 Creatinine 0.74 Estimat Glomerular Filtration 77 Rate Random Glucose 87 Calcium Level 7.8 Total Bilirubin 2.4 Aspartate Amino Transf 673 (AST/SGOT) Alanine Aminotransferase 1076 (ALT/SGPT) Alkaline Phosphatase 116 Total Protein 5.3 Albumin 2.6 Lipase 958 Date/Time Procedure Status Source Growth 10/21/16 18:15 Aerobic Blood Culture - Preliminary Resulted Blood Peripheral NO GROWTH IN 1 DAY 10/21/16 18:15 Anaerobic Blood Culture - Preliminary Resulted Blood Peripheral NO GROWTH IN 1 DAY Imaging Last Impressions Abdomen/Pelvis CT 10/21/16 0926 Signed Impressions: Service Date/Time: Friday, October 21, 2016 11:41 - CONCLUSION: 1. Steatosis. 2. Distended gallbladder with abnormal gallbladder wall thickening and cholelithiasis. 3. Pancreatic low attenuation masses are seen likely cystic but incompletely evaluated on this study. Minimal stranding in the peripancreatic fat is noted which can indicate mild pancreatitis. 4. Bilateral renal cysts. 5. Inguinal hernias. 6. Uterine fibroid. Benedicto Mcclure MD Cholangiopancreatography MRI 10/21/16 0000 Signed Impressions: Service Date/Time: Friday, October 21, 2016 14:03 - CONCLUSION: 1. Abnormal gallbladder which is distended and demonstrates wall thickening with wall edema and likely mild pericholecystic inflammation. There are layering small stones in the fundus. Findings are suspicious for acute cholecystitis.No common duct stones are identified. 2. There is also mild edema around the pancreas and duodenum. This could indicate mild acute pancreatitis. Suggest correlation with the laboratory values. 3. There are 2 cystic lesions in the body the pancreas measuring up to 12 mm. They have a simple appearance and I cannot demonstrate a definite connection with the main pancreatic duct on this examination. If no prior imaging studies are available suggest a 12 month followup MRCP to confirm stability. 4. Mild hepatomegaly with moderate to severe steatosis. Edmundo Moon MD Physical Exam HEENT: EOMI; normocephalic; atraumatic; no jaundice. NECK: Neck is supple CHEST: Chest is clear to auscultation and percussion. CARDIAC: Regular rate and rhythm with no murmur gallop or rubs. ABDOMEN: Soft, nondistended, nontender; bowel sounds are present in all four quadrants. EXTREMITIES: No clubbing, cyanosis, or edema. SKIN: Normal; no rash; no jaundice. RN ORTHOPEDIC: No focal deficits; alert and oriented times three. Assessment and Plan Plan - Pancreatitis/epigastric pain.- Improving. LFTs improving. most likely gallstones pancreatitis, lipase 985, WBC of 6.3, Bili 2.4, AST 673, ALT 1076, CT on (10/21/16) -----> Steatosis. 2. Distended gallbladder with abnormal gallbladder wall thickening and cholelithiasis. 3. Pancreatic low attenuation masses are seen likely cystic but incompletely evaluated on this study. Minimal stranding in the peripancreatic fat is noted which can indicate mild pancreatitis. MRCP on (10/21/16) -----> 1. Abnormal gallbladder which is distended and demonstrates wall thickening with wall edema and likely mild pericholecystic inflammation. There are layering small stones in the fundus. Findings are suspicious for acute cholecystitis.No common fabi stones are identified. 2. There is also mild edema around the pancreas and duodenum. This could indicate mild acute pancreatitis. 3. There are 2 cystic lesions in the body the pancreas measuring up to 12 mm. They have a simple appearance and I cannot demonstrate a definite connection with the main pancreatic duct on this examination. If no prior imaging studies are available suggest a 12 month followup MRCP to confirm stability. 4. Mild hepatomegaly with moderate to severe steatosis. Patient denies previous history of this. She denies alcohol intake, denies any new medications at home. She never had EGD/colonoscopy before. - leukocytosis- 6.3, improving. secondary to above. Zosyn. - Elevated liver enzymes- secondary to above, rest of liver w/u pending - Pancreatic cysts- imaging as above - HTN, A-fib per attending Plan: - clear liquids - IV hydration/ pain meds - GS on the case - await results liver w/u - Lipase, LFTs in am - will need EGD at one point once medically stable - PPI - Supportive care - Patient seen and examined by Dr. Longo and myself and this note is written on his behalf. Selene Rosado Oct 22, 2016 15:23
[2016-10-22 15:44] VITALS: BP 131/61; PULSE 51; RESP 17; TEMP 96; O2SAT 99
--- NOTE | 2016-10-22 17:25 | HHI.PR ---
Subjective Subjective Notes C/o headache due to no caffeine Objective Vitals/I&O Vital Signs Date Time Temp Pulse Resp B/P Pulse Ox O2 Delivery O2 Flow Rate FiO2 10/22/16 15:44 96.0 51 17 131/61 99 Labs Laboratory Tests Test 10/21/16 10/22/16 10/22/16 18:12 06:30 07:26 Lactic Acid Level 1.2 Hepatitis A IgM Antibody NEGATIVE Hepatitis B Surface Antigen NEGATIVE Hepatitis B Core IgM Antibody NEGATIVE Hepatitis C Antibody NEGATIVE Transferrin 205 White Blood Count 6.3 Red Blood Count 3.98 Hemoglobin 12.5 Hematocrit 36.1 Mean Corpuscular Volume 90.9 Mean Corpuscular Hemoglobin 31.5 Mean Corpuscular Hemoglobin 34.7 Concent Red Cell Distribution Width 13.0 Platelet Count 89 Mean Platelet Volume 9.3 Neutrophils (%) (Auto) 69.3 Lymphocytes (%) (Auto) 21.1 Monocytes (%) (Auto) 8.8 Eosinophils (%) (Auto) 0.5 Basophils (%) (Auto) 0.3 Neutrophils # (Auto) 4.4 Lymphocytes # (Auto) 1.3 Monocytes # (Auto) 0.6 Eosinophils # (Auto) 0.0 Basophils # (Auto) 0.0 CBC Comment AUTO DIFF Differential Comment AUTO DIFF CONFIRMED Sodium Level 144 Potassium Level 3.3 Chloride Level 112 Carbon Dioxide Level 20.6 Anion Gap 11 Blood Urea Nitrogen 10 Creatinine 0.74 Estimat Glomerular Filtration 77 Rate Random Glucose 87 Calcium Level 7.8 Total Bilirubin 2.4 Aspartate Amino Transf 673 (AST/SGOT) Alanine Aminotransferase 1076 (ALT/SGPT) Alkaline Phosphatase 116 Total Protein 5.3 Albumin 2.6 Lipase 958 Date/Time Procedure Status Source Growth 10/21/16 18:15 Aerobic Blood Culture - Preliminary Resulted Blood Peripheral NO GROWTH IN 1 DAY 10/21/16 18:15 Anaerobic Blood Culture - Preliminary Resulted Blood Peripheral NO GROWTH IN 1 DAY Cardiovascular: Regular Lungs: Clear Abdomen: Other (mild tenderness in RUQ with palpation ) Extremities: No edema A/P Assessment and Plan 71 year old female with GS pancreatitis -Trend lipase -Okay for clears + coffee -OOB and mobilize -IVF -Pain control -Follow hepatitis panel -GI following Attending Statement patient seen at bedside johnson f/u labs ok for coffee Attestation The exam, history, and the medical decision-making described in the above note were completed with the assistance of the mid-level provider. I reviewed and agree with the findings presented. I attest that I had a [id number] encounter with the patient on the same day, and personally performed and documented my assessment and findings in the medical record. Shantal Alvarado Oct 22, 2016 17:24 Pavel Fischer MD Oct 28, 2016 22:09
[2016-10-22] MEDS: PANTOPRAZOLE SODIUM 40 MG VIAL IV PUSH SCH (18:14)
[2016-10-22 19:45] VITALS: BP 138/65; PULSE 60; RESP 16; TEMP 97; O2SAT 98
[2016-10-22] MEDS: ATENOLOL 100 MG TAB PO SCH (21:21)
[2016-10-22] MEDS: LOSARTAN 25 MG TAB PO SCH (21:21)
[2016-10-22] MEDS: ASPIRIN EC 81 MG TABEC PO SCH (21:22)
[2016-10-23 00:05] VITALS: BP 111/63; PULSE 59; RESP 16; TEMP 97.5; O2SAT 92
[2016-10-23] MEDS: PIPERACIL-TAZO 3.375 GM PREMIX 50 ML IV SCH ×4 (00:09→16:27)
[2016-10-23] MEDS: DOCUSATE SODIUM 100 MG CAP PO SCH ×2 (03:41→15:16)
[2016-10-23 04:35] VITALS: BP 119/60; PULSE 66; RESP 16; TEMP 98.4; O2SAT 92
[2016-10-23 07:37] VITALS: BP 122/63; PULSE 62; RESP 18; TEMP 98.8; O2SAT 96
[2016-10-23 07:38] LABS: BICARBONATE 23.3 MEQ/L (21.0-32.0); POTASSIUM 3.6 MEQ/L (3.5-5.1)
[2016-10-23 07:41] LABS: INDIRECT BILIRUBIN 0.6 MG/DL (0.0-0.8); TOTAL BILIRUBIN ADULT 1.1 MG/DL (0.2-1.0)
[2016-10-23] MEDS: SODIUM CHLORIDE 0.9% FLUSH 10 ML FLUSH IV FLUSH SCH ×2 (08:41→21:34)
[2016-10-23] MEDS: PROPAFENONE HCL 150 MG TAB PO SCH ×2 (08:42→21:34)
[2016-10-23] MEDS ORDERED: LACTOBACILLUS ACIDOPHILUS TAB PO ONE (10:30)
--- NOTE | 2016-10-23 10:32 | HHI.FPPN ---
Subjective Remarks Lying in bed, no distress. Reports abdominal pain is resolved. Does have diarrhea. No nausea or vomiting. No other complaints this morning. (Micky Torres MD R2) Objective Vitals Vital Signs Date Time Temp Pulse Resp B/P Pulse Ox O2 Delivery O2 Flow Rate FiO2 10/23/16 07:37 98.8 62 18 122/63 96 10/23/16 04:35 98.4 66 16 119/60 92 10/23/16 00:05 97.5 59 16 111/63 92 10/22/16 19:45 97.0 60 16 138/65 98 10/22/16 15:44 96.0 51 17 131/61 99 10/22/16 11:35 96.0 63 17 148/63 99 I/O 10/22/16 10/22/16 10/22/16 10/23/16 10/23/16 10/23/16 07:00 15:00 23:00 07:00 15:00 23:00 Intake Total 1223 ml 240 ml 240 ml Output Total 700 ml Balance 1223 ml -460 ml 240 ml Intake Oral 0 ml 240 ml 240 ml IV Total 1223 ml Output Urine Total 700 ml # Voids 2 5 5 # Bowel Movements 0 0 5 (Micky Torres MD R2) Result Diagram: 10/22/16 0726 10/23/16 0655 Imaging Last 72 hours Impressions Abdomen/Pelvis CT 10/21/16 0926 Signed Impressions: Service Date/Time: Friday, October 21, 2016 11:41 - CONCLUSION: 1. Steatosis. 2. Distended gallbladder with abnormal gallbladder wall thickening and cholelithiasis. 3. Pancreatic low attenuation masses are seen likely cystic but incompletely evaluated on this study. Minimal stranding in the peripancreatic fat is noted which can indicate mild pancreatitis. 4. Bilateral renal cysts. 5. Inguinal hernias. 6. Uterine fibroid. Benedicto Mcclure MD Cholangiopancreatography MRI 10/21/16 0000 Signed Impressions: Service Date/Time: Friday, October 21, 2016 14:03 - CONCLUSION: 1. Abnormal gallbladder which is distended and demonstrates wall thickening with wall edema and likely mild pericholecystic inflammation. There are layering small stones in the fundus. Findings are suspicious for acute cholecystitis.No common duct stones are identified. 2. There is also mild edema around the pancreas and duodenum. This could indicate mild acute pancreatitis. Suggest correlation with the laboratory values. 3. There are 2 cystic lesions in the body the pancreas measuring up to 12 mm. They have a simple appearance and I cannot demonstrate a definite connection with the main pancreatic duct on this examination. If no prior imaging studies are available suggest a 12 month followup MRCP to confirm stability. 4. Mild hepatomegaly with moderate to severe steatosis. Edmundo Moon MD Objective Remarks GENERAL: Sitting up in bed, no distress, comfortable HEENT: NCAT, EOMI, no scleral icterus, no conjunctival injection. MMM. NECK: Supple, no meningeal signs. CV: RRR, S1 S2. No murmurs CHEST/PULM: CTAB, no crackles, no wheezes ABD/GI: +BS, soft, nondistended. Tenderness to palpation resolved except with deep pressure. EXT: 2+ DP pulses. No calf tenderness. No edema. NEURO: Awake, alert. Normal muscle tone. Grossly within normal limits. SKIN: No rashes, no jaundice. PSYCH: Mood and affect are appropriate. Speech fluent. (Micky Torres MD R2) A/P Assessment and Plan 71 year old female presents with RUQ and epigastric pain with evidence of biliary obstruction, possible cholecystitis, cholelithiasis, pancreatitis Discharge Planning Pending laparoscopic cholecystectomy and resolution of acute pancreatitis. ( Micky Torres MD R2) Attending Attestation Patient seen and examined, discussed with resident team. I agree with assessment and management as documented and discussed with me. Pt reports no abdominal pain. No nausea. She has had diarrhea this morning. She denies blood or mucous in her stool. Per discussion with nurse, it appears to be antibiotic-related diarrhea. Pt is likely to have lap atif tomorrow. All of her questions answered to the best of my abilities. (Mohini Valdes MD) Problem List: (1) Acute gallstone pancreatitis Status: Acute Plan: Work up at presentation: Total bili is 3.8. AST/ALT are 2192/2074. ALP is 148. Lipase [address]72. CT showing steatosis, distended gallbladder, gallbladder wall thickening, cholelithiasis. Peripancreatic fat stranding suggesting pancreatitis. Low attenuation masses seen on pancreas, likely cystic but incompletely evaluated. Likely etiology is common bile duct obstruction with gallstone. MRCP: 1. Abnormal gallbladder which is distended and demonstrates wall thickening with wall edema and likely pericholecystic inflammation. There are layering small stones in the fundus. Findings are suspicious for acute cholecystitis. No common duct stones are identified. 2. There is also mild edema around the pancreas and duodenum. This could indicate mild acute pancreatitis. 3. There are 2 cystic lesions in the body of the pancreas measuring up to 12mm. They have a simple appearance and I cannot demonstrate a definite connection with the main pancreatic duct on this examination. If no prior imaging studies are available, suggest a 12 month follow up MRCP to confirm stability. 4. Mild hepatomegaly with moderate to severe steatosis. - GI has been consulted. Pt has deferred/declined EGD at this time. Await labs as ordered by GI. - General surgery consulted, who recommends lap cholecystectomy likely tomorrow. - Clear liquids, advance to full liquids - Pain management with Percocet, Ibuprofen, Dilaudid for breakthrough pain - NS decreased back to 100 mls/hr as she is now starting to eat/drink. - Monitor vital signs and labs. (2) Acute cholecystitis Status: Acute Plan: See plan above. (3) Cyst of pancreas Status: Chronic Plan: Appears benign per MRCP as above. Pt will need repeat MRCP in 12 months to confirm stability of cysts. (4) Atrial fibrillation Status: Chronic Plan: On examination, regular rate and rhythm - rate and rhythm controlled - Continue propafenone and atenolol from home. - Not currently on anticoagulation. CHADS-Vasc score is 3; patient may benefit from anticoagulation in the future postoperatively. (5) Leukocytosis Status: Resolved Plan: Secondary to above. On zosyn for GI coverage. Afebrile. Will monitor. (6) Thrombocytopenia Status: Chronic Plan: Suspect chronic thrombocytopenia. No obvious active bleeding. Will monitor. (7) Hypertension Status: Chronic Plan: Continue current regimen. Blood pressure is controlled. (Micky Torres MD R2) Micky Torres MD R2 Oct 23, 2016 10:31 Mohini Valdes MD Oct 23, 2016 20:19
[2016-10-23 11:37] VITALS: BP 139/67; PULSE 63; RESP 17; TEMP 96.7; O2SAT 95
[2016-10-23] MEDS ORDERED: LOPERAMIDE HCL 2 MG CAP PO PRN (12:00)
--- NOTE | 2016-10-23 13:29 | HHI.GIFU ---
Subjective Remarks Resting in bed. Mild bloating and RUQ tenderness on exam, but much improved. Does complain of frequent loose stools today- one every 30 minutes. Stool was sent for CDiff and this is pending. Objective Vitals I&O Vital Signs Date Time Temp Pulse Resp B/P Pulse Ox O2 Delivery O2 Flow Rate FiO2 10/23/16 11:37 96.7 63 17 139/67 95 10/23/16 07:37 98.8 62 18 122/63 96 10/23/16 04:35 98.4 66 16 119/60 92 10/23/16 00:05 97.5 59 16 111/63 92 10/22/16 19:45 97.0 60 16 138/65 98 10/22/16 15:44 96.0 51 17 131/61 99 I/O 10/22/16 10/22/16 10/22/16 10/23/16 10/23/16 10/23/16 07:00 15:00 23:00 07:00 15:00 23:00 Intake Total 1223 ml 240 ml 240 ml Output Total 700 ml Balance 1223 ml -460 ml 240 ml Intake Oral 0 ml 240 ml 240 ml IV Total 1223 ml Output Urine Total 700 ml # Voids 2 5 5 # Bowel Movements 0 0 5 Laboratory Laboratory Tests Test 10/23/16 06:55 Sodium Level 144 Potassium Level 3.6 Chloride Level 113 Carbon Dioxide Level 23.3 Anion Gap 8 Blood Urea Nitrogen 9 Creatinine 0.67 Estimat Glomerular Filtration 86 Rate Random Glucose 105 Calcium Level 8.0 Total Bilirubin 1.1 Direct Bilirubin 0.5 Indirect Bilirubin 0.6 Aspartate Amino Transf 333 (AST/SGOT) Alanine Aminotransferase 767 (ALT/SGPT) Alkaline Phosphatase 106 Total Protein 5.4 Albumin 2.5 Lipase 562 Date/Time Procedure Status Source Growth 10/21/16 18:15 Aerobic Blood Culture - Preliminary Resulted Blood Peripheral NO GROWTH IN 2 DAYS 10/21/16 18:15 Anaerobic Blood Culture - Preliminary Resulted Blood Peripheral NO GROWTH IN 2 DAYS Imaging Last Impressions Abdomen/Pelvis CT 10/21/16 0926 Signed Impressions: Service Date/Time: Friday, October 21, 2016 11:41 - CONCLUSION: 1. Steatosis. 2. Distended gallbladder with abnormal gallbladder wall thickening and cholelithiasis. 3. Pancreatic low attenuation masses are seen likely cystic but incompletely evaluated on this study. Minimal stranding in the peripancreatic fat is noted which can indicate mild pancreatitis. 4. Bilateral renal cysts. 5. Inguinal hernias. 6. Uterine fibroid. Benedicto Mcclure MD Cholangiopancreatography MRI 10/21/16 0000 Signed Impressions: Service Date/Time: Friday, October 21, 2016 14:03 - CONCLUSION: 1. Abnormal gallbladder which is distended and demonstrates wall thickening with wall edema and likely mild pericholecystic inflammation. There are layering small stones in the fundus. Findings are suspicious for acute cholecystitis.No common duct stones are identified. 2. There is also mild edema around the pancreas and duodenum. This could indicate mild acute pancreatitis. Suggest correlation with the laboratory values. 3. There are 2 cystic lesions in the body the pancreas measuring up to 12 mm. They have a simple appearance and I cannot demonstrate a definite connection with the main pancreatic duct on this examination. If no prior imaging studies are available suggest a 12 month followup MRCP to confirm stability. 4. Mild hepatomegaly with moderate to severe steatosis. Edmundo Moon MD Physical Exam HEENT: Normocephalic; atraumatic; no jaundice. NECK: Neck is supple CHEST: CTA CARDIAC: RRR ABDOMEN: Soft, nondistended,mild RUQ tenderness; bowel sounds are present in all four quadrants. EXTREMITIES: No clubbing, cyanosis, or edema. SKIN: Normal; no rash; no jaundice. RIG OPERATOR: No focal deficits; alert and oriented times three. Assessment and Plan Plan ASSESSMENT: - Gallstone Pancreatitis/epigastric pain. CT on (10/21/16) Steatosis. 2. Distended gallbladder with abnormal gallbladder wall thickening and cholelithiasis. 3. Pancreatic low attenuation masses are seen likely cystic but incompletely evaluated on this study. Minimal stranding in the peripancreatic fat is noted which can indicate mild pancreatitis. 4. Bilateral renal cysts. 5. Inguinal hernias. 6. Uterine fibroid. MRCP on (10/21/16) showed 1. Abnormal gallbladder which is distended and demonstrates wall thickening with wall edema and likely mild pericholecystic inflammation. There are layering small stones in the fundus. Findings are suspicious for acute cholecystitis. No common duct stones are identified. 2. There is also mild edema around the pancreas and duodenum. This could indicate mild acute pancreatitis. Suggest correlation with the laboratory values. 3. There are 2 cystic lesions in the body the pancreas measuring up to 12 mm. They have a simple appearance and I cannot demonstrate a definite connection with the main pancreatic duct on this examination. If no prior imaging studies are available suggest a 12 month followup MRCP to confirm stability. 4. Mild hepatomegaly with moderate to severe steatosis. Patient denies previous history of this. She denies alcohol intake, denies any new medications at home. LFTs and lipase are improving. T. Bili 1.1, AST 333, ALT 767, Alk Phosph 106, Lipase 562. GS following, possible cholecystectomy tomorrow. - Elevated LFTs secondary to above. Likely passed a stone. No CBD stone on MRCP. LFTs and Lipase improving. No need for ERCP. - Cholelithiasis. GS following. Plan for lap. atif tomorrow. - Diarrhea, multiple liquid stools- one small liquid stool every 30 minutes. CDiff was ordered, pending. - Leukocytosis. on Zosyn, secondary to above - HTN, A-fib per attending Plan: - Full liquids - PPI - IVF - Await CDiff - Monitor labs - GS following, possible lap. atif in am. - Supportive care - Patient seen and examined by Dr. Longo and myself and this note is written on his behalf. Genevieve Izaguirre Oct 23, 2016 13:29
[2016-10-23] MEDS: SODIUM CHLOR 0.9% 1000 ML INJ 1,000 ML IV SCH (14:41)
[2016-10-23 15:28] VITALS: BP 128/62; PULSE 66; RESP 17; TEMP 96.4; O2SAT 97
[2016-10-23 16:01] LABS: C. DIFF EPI 027 PRESUMPTIVE NEGATIVE (NEGATIVE); C. DIFF TOXIN PCR NEGATIVE (NEGATIVE)
[2016-10-23] MEDS: PANTOPRAZOLE SODIUM 40 MG VIAL IV PUSH SCH (16:27)
[2016-10-23] MEDS ORDERED: LORazepam 0.5 MG TAB PO PRN (17:15)
[2016-10-23 20:00] VITALS: BP 137/77; PULSE 63; RESP 16; TEMP 97.5; O2SAT 99
[2016-10-23] MEDS: ATENOLOL 100 MG TAB PO SCH (21:33)
[2016-10-23] MEDS: LACTOBACILLUS ACIDOPHILUS TAB PO SCH (21:33)
[2016-10-23] MEDS: LOSARTAN 25 MG TAB PO SCH (21:33)
[2016-10-23] MEDS: ASPIRIN EC 81 MG TABEC PO SCH (21:34)
[2016-10-23 23:52] LABS: MITOCHONDRIAL ABS LESS THAN 20.0 U (())
[2016-10-24] MEDS: PIPERACIL-TAZO 3.375 GM PREMIX 50 ML IV SCH ×5 (00:18→22:51)
[2016-10-24] MEDS: SODIUM CHLOR 0.9% 1000 ML INJ 1,000 ML IV SCH ×3 (00:38→20:41)
[2016-10-24 01:05] VITALS: BP 113/65; PULSE 61; RESP 16; TEMP 97.6; O2SAT 96
[2016-10-24] MEDS: DOCUSATE SODIUM 100 MG CAP PO SCH ×2 (02:01→16:00)
[2016-10-24 04:00] VITALS: BP 117/58; PULSE 64; RESP 15; TEMP 97.9; O2SAT 98
--- NOTE | 2016-10-24 06:48 | HHI.PR ---
Subjective Subjective Notes DATE 10/23/16 Pt seen, no acute issues, feeling better, diarrhea, labs trending down Objective Vitals/I&O Vital Signs Date Time Temp Pulse Resp B/P Pulse Ox O2 Delivery O2 Flow Rate FiO2 10/24/16 04:00 97.9 64 15 117/58 98 Labs Laboratory Tests Test 10/23/16 10/23/16 06:55 13:00 Sodium Level 144 Potassium Level 3.6 Chloride Level 113 Carbon Dioxide Level 23.3 Anion Gap 8 Blood Urea Nitrogen 9 Creatinine 0.67 Estimat Glomerular Filtration 86 Rate Random Glucose 105 Calcium Level 8.0 Total Bilirubin 1.1 Direct Bilirubin 0.5 Indirect Bilirubin 0.6 Aspartate Amino Transf 333 (AST/SGOT) Alanine Aminotransferase 767 (ALT/SGPT) Alkaline Phosphatase 106 Total Protein 5.4 Albumin 2.5 Lipase 562 Stool C. difficile Toxin (PCR) NEGATIVE Stl C. difficile Toxin PRESUMPTIVE Epiderm 027 NEGATIVE Date/Time Procedure Status Source Growth 10/21/16 18:15 Aerobic Blood Culture - Preliminary Resulted Blood Peripheral NO GROWTH IN 2 DAYS 10/21/16 18:15 Anaerobic Blood Culture - Preliminary Resulted Blood Peripheral NO GROWTH IN 2 DAYS Cardiovascular: Regular Lungs: Clear Abdomen: Other (soft mild ttp epigastric, no rebound) A/P Assessment and Plan gallstone pancreatitis labs trending down PLAN Ok for liquid diet NPO for surgery thrusday - lap atif possible open possible IOC will check labs in AM if trending down then will plan for surgery pain control oob discussed with patient and family Pavel Fischer MD Oct 24, 2016 06:48
[2016-10-24 06:51] LABS: ALKALINE PHOSPHATASE 106 U/L (45-117); ALT (GPT) 581 U/L (10-53); ANION GAP 8 MEQ/L (5-15); AST (GOT) 151 U/L (15-37); BICARBONATE 23.3 MEQ/L (21.0-32.0); BLOOD UREA NITROGEN 9 MG/DL (7-18); CHLORIDE 111 MEQ/L (98-107); GLOMERULAR FILTRATION RATE 82 ML/MIN (>89); POTASSIUM 3.1 MEQ/L (3.5-5.1); SODIUM (NA) 142 MEQ/L (136-145); TOTAL BILIRUBIN ADULT 0.8 MG/DL (0.2-1.0)
[2016-10-24 07:15] LABS: HEMATOCRIT 35.8 % (35.0-46.0); MEAN CELL VOLUME 91.4 FL (80.0-100.0); MEAN CORPUSCULAR HEMOGLOBIN 31.2 PG (27.0-34.0); MEAN CORPUSCULAR HGB CONC 34.2 % (32.0-36.0); PLATELET COUNT 109 TH/MM3 (150-450); RED BLOOD COUNT 3.92 MIL/MM3 (4.00-5.30); REVIEW FLAG FINAL; WHITE BLOOD COUNT 6.4 TH/MM3 (4.0-11.0)
[2016-10-24 08:00] VITALS: BP 144/75; PULSE 63; RESP 18; TEMP 97.6; O2SAT 95
[2016-10-24] MEDS: PROPAFENONE HCL 150 MG TAB PO SCH ×2 (08:15→20:39)
[2016-10-24] MEDS: LACTOBACILLUS ACIDOPHILUS TAB PO SCH ×2 (08:16→20:40)
[2016-10-24] MEDS: SODIUM CHLORIDE 0.9% FLUSH 10 ML FLUSH IV FLUSH SCH ×2 (08:17→22:52)
[2016-10-24] MEDS ORDERED: APREPITANT 40 MG CAP ONE (10:59)
[2016-10-24] MEDS ORDERED: MIDAZOLAM HCL 2 MG/2 ML VIAL ONE (10:59)
[2016-10-24] MEDS ORDERED: DEXAMETHASONE SOD PHOS 4 MG/ML VIAL ONE (10:59)
[2016-10-24] MEDS ORDERED: fentaNYL CITRATE 250 MCG/5 ML AMP ONE (11:15)
[2016-10-24] MEDS ORDERED: DICLOFENAC SODIUM 37.5 MG/ML VIAL IV PUSH ONE (11:15)
[2016-10-24] MEDS ORDERED: ACETAMINOPHEN 1000 MG/100 ML VIAL IV ONE (11:15)
[2016-10-24] MEDS ORDERED: BUPIVACAINE/EPINEPHRINE 0.25% 50 ML VIAL ONE (11:20)
[2016-10-24] MEDS ORDERED: LIDOCAINE 1%/EPINEPHrine 1:100,000 SOLN 50 ML VIAL ONE (11:22)
[2016-10-24] MEDS ORDERED: BUPIVACAINE/EPINEPHRINE 0.5% PF 30 ML VIAL ONE (11:22)
--- NOTE | 2016-10-24 11:31 | HHI.FPPN ---
Subjective Remarks Sitting up in bed. Diarrhea stopped yesterday afternoon, but did have one loose stool this morning. C. diff test was negative. Abdominal pain resolved. She is tolerating diet well. Currently NPO for cholecystectomy today. No nausea or vomiting. Overall feels much better than at admission. (Micky Torres MD R2) Objective Vitals Vital Signs Date Time Temp Pulse Resp B/P Pulse Ox O2 Delivery O2 Flow Rate FiO2 10/24/16 08:00 97.6 63 18 144/75 95 10/24/16 04:00 97.9 64 15 117/58 98 10/24/16 01:05 97.6 61 16 113/65 96 10/23/16 20:00 97.5 63 16 137/77 99 10/23/16 15:28 96.4 66 17 128/62 97 10/23/16 11:37 96.7 63 17 139/67 95 I/O 10/23/16 10/23/16 10/23/16 10/24/16 10/24/16 10/24/16 07:00 15:00 23:00 07:00 15:00 23:00 Intake Total 240 ml 600 ml 320 ml 480 ml Output Total 5 ml Balance 240 ml 595 ml 320 ml 480 ml Intake Oral 240 ml 600 ml 320 ml 480 ml Output Urine Total 5 ml # Voids 5 3 3 # Bowel Movements 5 6 2 0 (Micky Torres MD R2) Result Diagram: 10/24/16 0544 10/24/16 0544 Objective Remarks GENERAL: Sitting up in bed, no distress, comfortable HEENT: NCAT, EOMI, no scleral icterus, no conjunctival injection. MMM. NECK: Supple, no meningeal signs. CV: RRR, S1 S2. No murmurs CHEST/PULM: CTAB, no crackles, no wheezes ABD/GI: +BS, soft, nondistended. Non-tender. EXT: 2+ DP pulses. No calf tenderness. No edema. NEURO: Awake, alert. Normal muscle tone. Grossly within normal limits. SKIN: No rashes, no jaundice. PSYCH: Mood and affect are appropriate. Speech fluent. (Micky Torres MD R2) A/P Assessment and Plan 71 year old female presents with RUQ and epigastric pain with evidence of biliary obstruction, possible cholecystitis, cholelithiasis, pancreatitis Discharge Planning Pending laparoscopic cholecystectomy and resolution of acute pancreatitis. ( Micky Torres MD R2) Attending Attestation Patient seen and examined, discussed with resident team. I agree with assessment and management as documented and discussed with me. Pt seen this afternoon postoperatively. She denies bloating. No pain with lying still; 4-5/10 pain with movement. Able to ambulate to restroom. Tolerating ice chips. Anticipate discharge in 1-2 days. (Mohini Valdes MD) Problem List: (1) Acute gallstone pancreatitis Status: Acute Plan: Work up at presentation: Total bili is 3.8. AST/ALT are 2192/2074. ALP is 148. Lipase [address]. CT showing steatosis, distended gallbladder, gallbladder wall thickening, cholelithiasis. Peripancreatic fat stranding suggesting pancreatitis. Low attenuation masses seen on pancreas, likely cystic but incompletely evaluated. Likely etiology is common bile duct obstruction with gallstone. MRCP: 1. Abnormal gallbladder which is distended and demonstrates wall thickening with wall edema and likely pericholecystic inflammation. There are layering small stones in the fundus. Findings are suspicious for acute cholecystitis. No common duct stones are identified. 2. There is also mild edema around the pancreas and duodenum. This could indicate mild acute pancreatitis. 3. There are 2 cystic lesions in the body of the pancreas measuring up to 12mm. They have a simple appearance and I cannot demonstrate a definite connection with the main pancreatic duct on this examination. If no prior imaging studies are available, suggest a 12 month follow up MRCP to confirm stability. 4. Mild hepatomegaly with moderate to severe steatosis. - GI on board, GS on board. - Workup ordered for liver injury is negative (hepatitis, ADAIR, mitochondrial antibodies, anti-smooth muscle, celiac workup). Liver insult likely from gallstone with liver enzymes trending down. - Lap cholecystectomy today. - NPO for surgery. - Pain management with Percocet, Ibuprofen, Dilaudid for breakthrough pain - NS 100 mls/hr (2) Acute cholecystitis Status: Acute Plan: See plan above. Zosyn day 3 (3) Cyst of pancreas Status: Chronic Plan: Appears benign per MRCP as above. Pt will need repeat MRCP in 12 months to confirm stability of cysts. (4) Atrial fibrillation Status: Chronic Plan: On examination, regular rate and rhythm - rate and rhythm controlled - Continue propafenone and atenolol from home. - Not currently on anticoagulation. CHADS-Vasc score is 3; patient may benefit from anticoagulation in the future postoperatively. (5) Thrombocytopenia Status: Chronic Plan: Suspect chronic thrombocytopenia. No obvious active bleeding. Will monitor. (6) Hypertension Status: Chronic Plan: Continue current regimen. Blood pressure is controlled. (Micky Torres MD R2) Micky Torres MD R2 Oct 24, 2016 11:31 Mohini Valdes MD Oct 24, 2016 16:40
[2016-10-24] MEDS ORDERED: LIDOCAINE HCL 1% 50 ML VIAL ONE (11:47)
[2016-10-24] MEDS ORDERED: PROPOFOL 200 MG/20 ML AMP IV ONE (12:00)
[2016-10-24] MEDS ORDERED: NEOSTIGMINE 3 MG/3 ML SYR IV ONE (12:00)
[2016-10-24] MEDS ORDERED: ONDANSETRON HCL 4 MG/2 ML VIAL IV PUSH ONE (12:00)
--- NOTE | 2016-10-24 13:06 | HHI.PR ---
Immediate Post Op Note Procedure Date: Oct 24, 2016 Pre Op Diagnosis: gallstone pancreatitis Post Op Diagnosis: same Surgeon: Pavel Fischer MD Power Transformer Inspector(s): Masha Doyle aircraft structural fitter Procedure: lap atif Findings: distended gallbladder with stones Complications: none Specimen(s) removed: gallbladder Estimated blood loss: 5cc Anesthesia: General Drains: None IVF (600) Patient to: PACU Patient Condition: Good Pavel Fischer MD Oct 24, 2016 13:06
[2016-10-24 13:15] VITALS: O2SAT 94
[2016-10-24] MEDS ORDERED: DO NOT ADM ANY ANTICOAGULANT DRUGS PRN (14:00)
[2016-10-24 16:15] VITALS: BP 146/75; PULSE 60; RESP 20; TEMP 95.9; O2SAT 98
[2016-10-24] MEDS ORDERED: traMADol HCL 50 MG TAB PO PRN (16:30)
[2016-10-24] MEDS ORDERED: oxyCODONE/ACETAMINOPHEN 5 MG/325 MG TAB PO PRN (16:30)
[2016-10-24] MEDS: PANTOPRAZOLE SODIUM 40 MG VIAL IV PUSH SCH (16:42)
[2016-10-24] MEDS: IBUPROFEN 400 MG TAB PO PRN ×2 (16:47→22:51)
--- NOTE | 2016-10-24 17:02 | HHI.GIFU ---
Subjective Remarks Up in chair. No n/v, taking sips of clears. Had lap. atif earlier today. Pain controlled. Objective Vitals I&O Vital Signs Date Time Temp Pulse Resp B/P Pulse Ox O2 Delivery O2 Flow Rate FiO2 10/24/16 16:15 95.9 60 20 146/75 98 10/24/16 13:46 97.6 62 14 119/71 95 Nasal Cannula 2 10/24/16 13:16 97.6 66 12 135/75 94 Nasal Cannula 2 10/24/16 13:15 64 14 136/76 94 Nasal Cannula 2 10/24/16 08:00 97.6 63 18 144/75 95 10/24/16 04:00 97.9 64 15 117/58 98 10/24/16 01:05 97.6 61 16 113/65 96 10/23/16 20:00 97.5 63 16 137/77 99 I/O 10/23/16 10/23/16 10/23/16 10/24/16 10/24/16 10/24/16 07:00 15:00 23:00 07:00 15:00 23:00 Intake Total 240 ml 600 ml 320 ml 480 ml 600 ml Output Total 5 ml 10 ml Balance 240 ml 595 ml 320 ml 480 ml 590 ml Intake Oral 240 ml 600 ml 320 ml 480 ml Other 600 ml Output Urine Total 5 ml Estimated Blood Loss 10 ml # Voids 5 3 3 # Bowel Movements 5 6 2 0 Laboratory Laboratory Tests Test 10/24/16 05:44 White Blood Count 6.4 Red Blood Count 3.92 Hemoglobin 12.2 Hematocrit 35.8 Mean Corpuscular Volume 91.4 Mean Corpuscular Hemoglobin 31.2 Mean Corpuscular Hemoglobin 34.2 Concent Red Cell Distribution Width 13.0 Platelet Count 109 Mean Platelet Volume 9.9 Sodium Level 142 Potassium Level 3.1 Chloride Level 111 Carbon Dioxide Level 23.3 Anion Gap 8 Blood Urea Nitrogen 9 Creatinine 0.70 Estimat Glomerular Filtration 82 Rate Random Glucose 97 Calcium Level 8.1 Total Bilirubin 0.8 Aspartate Amino Transf 151 (AST/SGOT) Alanine Aminotransferase 581 (ALT/SGPT) Alkaline Phosphatase 106 Total Protein 5.6 Albumin 2.6 Lipase 482 Date/Time Procedure Status Source Growth 10/21/16 18:15 Aerobic Blood Culture - Preliminary Resulted Blood Peripheral NO GROWTH IN 3 DAYS 10/21/16 18:15 Anaerobic Blood Culture - Preliminary Resulted Blood Peripheral NO GROWTH IN 3 DAYS Imaging Last Impressions Abdomen/Pelvis CT 10/21/16 0926 Signed Impressions: Service Date/Time: Friday, October 21, 2016 11:41 - CONCLUSION: 1. Steatosis. 2. Distended gallbladder with abnormal gallbladder wall thickening and cholelithiasis. 3. Pancreatic low attenuation masses are seen likely cystic but incompletely evaluated on this study. Minimal stranding in the peripancreatic fat is noted which can indicate mild pancreatitis. 4. Bilateral renal cysts. 5. Inguinal hernias. 6. Uterine fibroid. Benedicto Mcclure MD Cholangiopancreatography MRI 10/21/16 0000 Signed Impressions: Service Date/Time: Friday, October 21, 2016 14:03 - CONCLUSION: 1. Abnormal gallbladder which is distended and demonstrates wall thickening with wall edema and likely mild pericholecystic inflammation. There are layering small stones in the fundus. Findings are suspicious for acute cholecystitis.No common duct stones are identified. 2. There is also mild edema around the pancreas and duodenum. This could indicate mild acute pancreatitis. Suggest correlation with the laboratory values. 3. There are 2 cystic lesions in the body the pancreas measuring up to 12 mm. They have a simple appearance and I cannot demonstrate a definite connection with the main pancreatic duct on this examination. If no prior imaging studies are available suggest a 12 month followup MRCP to confirm stability. 4. Mild hepatomegaly with moderate to severe steatosis. Edmundo Moon MD Physical Exam HEENT: Normocephalic; atraumatic; no jaundice. NECK: Neck is supple CHEST: CTA CARDIAC: RRR ABDOMEN: Soft, mildly bloated, mild tenderness; bowel sounds are present in all four quadrants. EXTREMITIES: No clubbing, cyanosis, or edema. SKIN: Normal; no rash; no jaundice. MACHINE CLEANER: No focal deficits; alert and oriented times three. Assessment and Plan Plan ASSESSMENT: - Gallstone Pancreatitis/epigastric pain. CT on (10/21/16) Steatosis. 2. Distended gallbladder with abnormal gallbladder wall thickening and cholelithiasis. 3. Pancreatic low attenuation masses are seen likely cystic but incompletely evaluated on this study. Minimal stranding in the peripancreatic fat is noted which can indicate mild pancreatitis. 4. Bilateral renal cysts. 5. Inguinal hernias. 6. Uterine fibroid. MRCP on (10/21/16) showed 1. Abnormal gallbladder which is distended and demonstrates wall thickening with wall edema and likely mild pericholecystic inflammation. There are layering small stones in the fundus. Findings are suspicious for acute cholecystitis. No common duct stones are identified. 2. There is also mild edema around the pancreas and duodenum. This could indicate mild acute pancreatitis. Suggest correlation with the laboratory values. 3. There are 2 cystic lesions in the body the pancreas measuring up to 12 mm. They have a simple appearance and I cannot demonstrate a definite connection with the main pancreatic duct on this examination. If no prior imaging studies are available suggest a 12 month followup MRCP to confirm stability. 4. Mild hepatomegaly with moderate to severe steatosis. Patient denies previous history of this. She denies alcohol intake, denies any new medications at home. LFTs and lipase are improving. T. Bili 0.8, AST 151, ALT 581, Alk Phosph 106, Lipase 482. GS following, S/P lap. cholecystectomy earlier today. OOB, Tolerating clears. Pain controlled. - Elevated LFTs secondary to above. Likely passed a stone. No CBD stone on MRCP. LFTs and Lipase improving. No need for ERCP. - Cholelithiasis. GS following. S/P lap. atif, POD #0 - Diarrhea. CDiff negative - Leukocytosis. on Zosyn, secondary to above - HTN, A-fib per attending Plan: - Diet per GS - PPI - IVF - Monitor labs - S/P lap. atif in am. - GI will sign off, please reconsult as needed - Patient seen and examined by Dr. Longo and myself and this note is written on his behalf. Genevieve Izaguirre Oct 24, 2016 17:02
--- NOTE | 2016-10-24 17:20 | EKG ---
Date Performed: 10/24/2016 Time Performed: 07:04:07 PTAGE: 71 years EKG: Sinus rhythm NONSPECIFIC T-WAVE ABNORMALITY BORDERLINE ECG NO PREVIOUS TRACING DOCTOR: Homer Lopez Interpretating Date/Time 10/24/2016 17:18:17
[2016-10-24 20:00] VITALS: BP 109/56; PULSE 62; RESP 22; TEMP 97.3; O2SAT 99
[2016-10-24] MEDS: ATENOLOL 100 MG TAB PO SCH (20:39)
[2016-10-24] MEDS: ASPIRIN EC 81 MG TABEC PO SCH (20:41)
[2016-10-24] MEDS: LOSARTAN 25 MG TAB PO SCH (20:41)
[2016-10-24] MEDS ORDERED: INSULIN HUMAN REGULAR 1,000 UNITS/10 ML VIAL SQ PRN (22:45)
[2016-10-24] MEDS ORDERED: SODIUM CHLORID 0.9% 500 ML IV PRN (22:45)
[2016-10-24] MEDS ORDERED: POVIDONE IODINE 5% (ANTISEPSIS KIT) 4 APPLICATIONS EACH NARE PRN (22:45)
[2016-10-24] MEDS ORDERED: CHLORHEXIDINE GLUCONATE 2 % 1 PACK (2 CLOTHS) TOPICAL PRN (22:45)
[2016-10-24] MEDS ORDERED: LACTATED RINGER'S 1000 ML IV PRN (22:45)
[2016-10-25] VITALS: BP 114/63; PULSE 58; RESP 18; TEMP 96.3; O2SAT 100
[2016-10-25 04:00] VITALS: BP 115/55; PULSE 65; RESP 20; TEMP 97; O2SAT 97
[2016-10-25] MEDS: DOCUSATE SODIUM 100 MG CAP PO SCH (04:00)
[2016-10-25] MEDS: IBUPROFEN 400 MG TAB PO PRN ×2 (06:12→13:19)
[2016-10-25] MEDS: PIPERACIL-TAZO 3.375 GM PREMIX 50 ML IV SCH (06:12)
[2016-10-25] MEDS: SODIUM CHLOR 0.9% 1000 ML INJ 1,000 ML IV SCH (06:41)
[2016-10-25 06:43] LABS: AUTOMATED NEUTROPHIL # 5.7 TH/MM3 (1.8-7.7); BASOPHIL % 0.2 % (0.0-2.0); HEMATOCRIT 34.8 % (35.0-46.0); HEMO FLAGS DIFF FINAL; LYMPH % 15.1 % (9.0-44.0); LYMPHOCYTE # 1.1 TH/MM3 (1.0-4.8); MEAN CELL VOLUME 89.6 FL (80.0-100.0); MEAN CORPUSCULAR HEMOGLOBIN 31.2 PG (27.0-34.0); MEAN CORPUSCULAR HGB CONC 34.9 % (32.0-36.0); MONO % 6.3 % (0.0-8.0); NEUT % 78.4 % (16.0-70.0); PLATELET COUNT 121 TH/MM3 (150-450); RED BLOOD COUNT 3.88 MIL/MM3 (4.00-5.30); RED CELL DISTRIBUTION WIDTH 12.9 % (11.6-17.2); WHITE BLOOD COUNT 7.3 TH/MM3 (4.0-11.0)
[2016-10-25] MEDS ORDERED: SENN8.6T15 PO (07:00)
[2016-10-25] MEDS ORDERED: ULTR50TA5 PO (07:00)
[2016-10-25] MEDS ORDERED: PANT40TA3 PO (07:01)
[2016-10-25] MEDS ORDERED: LACT PO (07:01)
--- NOTE | 2016-10-25 07:01 | HHI.DCPOC ---
Discharge Care Plan Diagnosis: (1) Acute gallstone pancreatitis (2) Acute cholecystitis (3) Hypertension (4) Atrial fibrillation Goals to Promote Your Health * To prevent worsening of your condition and complications * To maintain your health at the optimal level Directions to Meet Your Goals Take your medications as prescribed Follow your dietary instruction Follow activity as directed Keep your appointments as scheduled Take your immunizations and boosters as scheduled If your symptoms worsen call your PCP, if no PCP go to Urgent Care Center or Emergency Room Smoking is Dangerous to Your Health. Avoid second hand smoke Call the 24-hour hour crisis hotline for domestic abuse at Jovani Judge MD R1 Oct 25, 2016 07:01
[2016-10-25 07:08] LABS: ALT (GPT) 464 U/L (10-53); ANION GAP 10 MEQ/L (5-15); AST (GOT) 117 U/L (15-37); BICARBONATE 25.2 MEQ/L (21.0-32.0); BLOOD UREA NITROGEN 12 MG/DL (7-18); CHLORIDE 105 MEQ/L (98-107); GLOMERULAR FILTRATION RATE 77 ML/MIN (>89); POTASSIUM 3.1 MEQ/L (3.5-5.1); SODIUM (NA) 140 MEQ/L (136-145)
[2016-10-25 07:11] LABS: ALKALINE PHOSPHATASE 97 U/L (45-117); TOTAL BILIRUBIN ADULT 0.7 MG/DL (0.2-1.0)
[2016-10-25 08:00] VITALS: BP 121/58; PULSE 58; RESP 18; TEMP 97.3; O2SAT 95
[2016-10-25 08:11] VITALS: O2SAT 97
[2016-10-25] MEDS: PROPAFENONE HCL 150 MG TAB PO SCH (08:36)
[2016-10-25] MEDS: LACTOBACILLUS ACIDOPHILUS TAB PO SCH (08:36)
[2016-10-25] MEDS: SODIUM CHLORIDE 0.9% FLUSH 10 ML FLUSH IV FLUSH SCH (09:00)
--- NOTE | 2016-10-25 09:22 | HHI.PR ---
Subjective Subjective Notes DAILY PROGRESS NOTE FOR SURGICAL ATTENDING, DR. AL LEDEZMA Resting in bed Very minimal pain at incision sites Hungry Objective Vitals/I&O Vital Signs Date Time Temp Pulse Resp B/P Pulse Ox O2 Delivery O2 Flow Rate FiO2 10/25/16 08:11 97 21 10/25/16 08:00 97.3 58 18 121/58 10/24/16 13:46 Nasal Cannula 2 Labs Laboratory Tests Test 10/25/16 06:08 White Blood Count 7.3 Red Blood Count 3.88 Hemoglobin 12.1 Hematocrit 34.8 Mean Corpuscular Volume 89.6 Mean Corpuscular Hemoglobin 31.2 Mean Corpuscular Hemoglobin 34.9 Concent Red Cell Distribution Width 12.9 Platelet Count 121 Mean Platelet Volume 10.0 Neutrophils (%) (Auto) 78.4 Lymphocytes (%) (Auto) 15.1 Monocytes (%) (Auto) 6.3 Eosinophils (%) (Auto) 0.0 Basophils (%) (Auto) 0.2 Neutrophils # (Auto) 5.7 Lymphocytes # (Auto) 1.1 Monocytes # (Auto) 0.5 Eosinophils # (Auto) 0.0 Basophils # (Auto) 0.0 CBC Comment DIFF FINAL Differential Comment Sodium Level 140 Potassium Level 3.1 Chloride Level 105 Carbon Dioxide Level 25.2 Anion Gap 10 Blood Urea Nitrogen 12 Creatinine 0.74 Estimat Glomerular Filtration 77 Rate Random Glucose 101 Calcium Level 8.1 Total Bilirubin 0.7 Aspartate Amino Transf 117 (AST/SGOT) Alanine Aminotransferase 464 (ALT/SGPT) Alkaline Phosphatase 97 Total Protein 5.8 Albumin 2.7 Lipase 160 Date/Time Procedure Status Source Growth 10/21/16 18:15 Aerobic Blood Culture - Preliminary Resulted Blood Peripheral NO GROWTH IN 3 DAYS 10/21/16 18:15 Anaerobic Blood Culture - Preliminary Resulted Blood Peripheral NO GROWTH IN 3 DAYS Cardiovascular: Regular Lungs: Clear Abdomen: Other (soft; tender at incisions sites; normal post op tenderness; lap sites c/d/i ) Extremities: No edema A/P Assessment and Plan 71 year old female with GS pancreatitis; POD1 lap atif -Liver enzymes and lipase continue to trend down -Advance to regular diet -OOB and mobilize -Pain control -GS clear for DC if pain controlled using oral pain medications and tolerates regular diet -Follow up with Dr. Fischer in 7-10 days -Okay to shower this evening; pat incisions dry Attending Statement NOTE FOR SURGICAL ATTENDING, DR. AL LEDEZMA I agree with above assessment and plan. The exam, history, and the medical decision-making described in the above note were completed with the assistance of the mid-level provider. I reviewed and agree with the findings presented. I attest that I had a [id number] encounter with the patient on the same day, and personally performed and documented my assessment and findings in the medical record. The following services were provided during this hospital visit: Chart data review, vital sign assessments/reviewing monitor data Review of consultations notes if present. Medication orders/review and/or management Ordering and/or reviewing lab tests Ordering and/or interpreting/reviewing x-rays and/or diagnostic studies Care of the patient and discussion of the patient with the care team Documentation time To help prompt me to consider important information that might be impacting today's encounter and assessment, information from prior notes written by myself or my colleagues may have been "brought forward/copy and pasted" into today's note. Shantal Alvarado Oct 25, 2016 09:22 Al Ledezma MD Oct 25, 2016 13:04
[2016-10-25] MEDS ORDERED: IBUP400T20 PO (09:35)
--- NOTE | 2016-10-25 14:00 | HHI.FPPN ---
Subjective Remarks Status post day 1 after laparoscopic cholecystectomy. Diarrhea resolved. Abdominal pain minimal, with some cramping after the surgery. No vomiting. Shelby queasy for a brief time this morning which has resolved. She is ambulating. She is urinating. No chest pain or shortness of breath. No calf tenderness. (Micky Torres MD R2) Objective Vitals Vital Signs Date Time Temp Pulse Resp B/P Pulse Ox O2 Delivery O2 Flow Rate FiO2 10/25/16 08:11 97 21 10/25/16 08:00 97.3 58 18 121/58 95 10/25/16 04:00 97.0 65 20 115/55 97 10/25/16 00:00 96.3 58 18 114/63 100 10/24/16 20:00 97.3 62 22 109/56 99 10/24/16 16:15 95.9 60 20 146/75 98 I/O 10/24/16 10/24/16 10/24/16 10/25/16 10/25/16 10/25/16 07:00 15:00 23:00 07:00 15:00 23:00 Intake Total 480 ml 600 ml 960 ml 480 ml Output Total 10 ml Balance 480 ml 590 ml 960 ml 480 ml Intake Oral 480 ml 960 ml 480 ml Other 600 ml Estimated Blood Loss 10 ml # Voids 3 8 4 # Bowel Movements 0 0 0 (Micky Torres MD R2) Result Diagram: 10/25/16 0608 10/25/16 0608 Objective Remarks GENERAL: Sitting up in bed, no distress, comfortable HEENT: NCAT, EOMI, no scleral icterus, no conjunctival injection. MMM. NECK: Supple, no meningeal signs. CV: RRR, S1 S2. No murmurs CHEST/PULM: CTAB, no crackles, no wheezes ABD/GI: +BS, soft, nondistended. Non-tender. Surgical sites clear, dry, intact. EXT: 2+ DP pulses. No calf tenderness. No edema. NEURO: Awake, alert. Normal muscle tone. SKIN: No rashes, no jaundice. PSYCH: Mood and affect are appropriate. (Micky Torres MD R2) A/P Assessment and Plan 71 year old female presents with RUQ and epigastric pain with evidence of biliary obstruction, possible cholecystitis, cholelithiasis, pancreatitis Discharge Planning Discharge today, status post day 1 after laparoscopic cholecystectomy. Will follow up with general surgery and her primary care doctor. Will get MRCP in one year to reassess pancreatic cysts, and a CMP in one week to track her LFT' s. (Micky Torres MD R2) Attending Attestation Patient seen, examined, and discussed with resident team. I agree with assessment and management as documented and discussed with me. Pt reports some mild nausea after some breakfast this AM. Pain is controlled with motrin. Lipase, AST, ALT improved. Discharge home today. Greater than 30 minutes spent counselling and coordinating care at discharge. Pt's PCP notified of her discharge. (Mohini Valdes MD) Problem List: (1) Acute gallstone pancreatitis Status: Acute Plan: Presented with likely gallstone pancreatitis, cholecystitis, liver injury. Lipase back to normal, LFT's trending down. Pain from pancreatitis resolved. Tolerating diet. Workup ordered for liver injury is negative ( hepatitis, ADAIR, mitochondrial antibodies, anti-smooth muscle, celiac workup). Liver insult likely from gallstone with liver enzymes trending down. - GI on board, GS on board. - Regular diet - Pain management with Ibuprofen. - PO fluids. (2) Acute cholecystitis Status: Acute Plan: See plan above. Received Zosyn, discontinue. (3) Cyst of pancreas Status: Chronic Plan: Appears benign per MRCP as above. Pt will need repeat MRCP in 12 months to confirm stability of cysts. (4) Atrial fibrillation Status: Chronic Plan: On examination, regular rate and rhythm - rate and rhythm controlled - Continue propafenone and atenolol from home. - Not currently on anticoagulation. CHADS-Vasc score is 3; patient may benefit from anticoagulation in the future postoperatively. (5) Hypertension Status: Chronic Plan: Continue current regimen. Blood pressure is controlled. (Micky Torres MD R2) Micky Torres MD R2 Oct 25, 2016 14:00 Mohini Valdes MD Oct 25, 2016 21:22
--- NOTE | 2016-10-25 16:38 | HHI.DS ---
Discharge Summary Admission Date Oct 21, 2016 at 13:21 Discharge Date: Oct 25, 2016 Admitting Diagnosis Pancreatitis, Hyperbilirubinemia, Hepatitis (1) Acute gallstone pancreatitis Diagnosis: Principal Plan: Presented with likely gallstone pancreatitis, cholecystitis, liver injury. Lipase back to normal, LFT's trending down. Pain from pancreatitis resolved. Tolerating diet. Workup ordered for liver injury is negative ( hepatitis, ADAIR, mitochondrial antibodies, anti-smooth muscle, celiac workup). Liver insult likely from gallstone with liver enzymes trending down. - GI on board, GS on board. - Regular diet - Pain management with Ibuprofen. - PO fluids. (2) Acute cholecystitis Diagnosis: Principal Plan: See plan above. Received Zosyn, discontinue. (3) Cyst of pancreas Diagnosis: Principal Plan: Appears benign per MRCP as above. Pt will need repeat MRCP in 12 months to confirm stability of cysts. (4) Atrial fibrillation Diagnosis: Secondary Plan: On examination, regular rate and rhythm - rate and rhythm controlled - Continue propafenone and atenolol from home. - Not currently on anticoagulation. CHADS-Vasc score is 3; patient may benefit from anticoagulation in the future postoperatively. (5) Hypertension Diagnosis: Secondary Plan: Continue current regimen. Blood pressure is controlled. Consultants General surgery Gastroenterology Procedures Laparoscopic cholecystectomy on 10/24/16 Brief History 71 year old female presents with epigastric and right upper quadrant pain. She has a history of RUQ pain that occurs after greasy meals that has occurred intermittently over the last couple years. 2 days ago, she had sudden onset of right upper quadrant and epigastric pain. She noted a spastic, crampy, burning sensation in these areas. The areas felt heavy. She had decrease appetite. She had some nausea but no vomiting. She's had normal bowel movements. No chest pain , shortness of breath, vomiting, calf tenderness. She does not feel feverish. CBC/BMP: 10/25/16 0608 10/25/16 0608 Significant Findings Laboratory Tests Test 10/23/16 10/24/16 10/25/16 06:55 05:44 06:08 Chloride Level 113 MEQ/L 111 MEQ/L (98-107) (98-107) Estimat Glomerular Filtration 86 ML/MIN (>89) 82 ML/MIN (>89) 77 ML/MIN (>89) Rate Calcium Level 8.0 MG/DL 8.1 MG/DL 8.1 MG/DL (8.5-10.1) (8.5-10.1) (8.5-10.1) Total Bilirubin 1.1 MG/DL (0.2-1.0) Direct Bilirubin 0.5 MG/DL (0.0-0.2) Aspartate Amino Transf 333 U/L (15-37) 151 U/L (15-37) 117 U/L (15-37) (AST/SGOT) Alanine Aminotransferase 767 U/L (10-53) 581 U/L (10-53) 464 U/L (10-53) (ALT/SGPT) Total Protein 5.4 GM/DL 5.6 GM/DL 5.8 GM/DL (6.4-8.2) (6.4-8.2) (6.4-8.2) Albumin 2.5 GM/DL 2.6 GM/DL 2.7 GM/DL (3.4-5.0) (3.4-5.0) (3.4-5.0) Lipase 562 U/L 482 U/L (73-393) (73-393) Red Blood Count 3.92 MIL/MM3 3.88 MIL/MM3 (4.00-5.30) (4.00-5.30) Platelet Count 109 TH/MM3 121 TH/MM3 (150-450) (150-450) Potassium Level 3.1 MEQ/L 3.1 MEQ/L (3.5-5.1) (3.5-5.1) Hematocrit 34.8 % (35.0-46.0) Neutrophils (%) (Auto) 78.4 % (16.0-70.0) PE at Discharge GENERAL: Sitting up in bed, no distress, comfortable HEENT: NCAT, EOMI, no scleral icterus, no conjunctival injection. MMM. NECK: Supple, no meningeal signs. CV: RRR, S1 S2. No murmurs CHEST/PULM: CTAB, no crackles, no wheezes ABD/GI: +BS, soft, nondistended. Non-tender. Surgical sites clear, dry, intact. EXT: 2+ DP pulses. No calf tenderness. No edema. NEURO: Awake, alert. Normal muscle tone. SKIN: No rashes, no jaundice. PSYCH: Mood and affect are appropriate. Hospital Course 71 year old female presents with epigastric and right upper quadrant pain. She has a history of RUQ pain that occurs after greasy meals that has occurred intermittently over the last couple years. 2 days before admission, she had sudden onset of right upper quadrant and epigastric pain. She noted a spastic, crampy, burning sensation in these areas. The areas felt heavy. She had decrease appetite. She had some nausea but no vomiting. She's had normal bowel movements. No chest pain, shortness of breath, vomiting, calf tenderness. She did not feel feverish. Lipase was found to be significantly elevated, along with elevated LFT's. MRCP was done, and no abnormalities were seen other than simple cysts on the pancreas. Imaging found evidence for cholecystitis. It was determined that she likely had a transient gallstone in the common bile duct causing cholecystitis, liver insult, and pancreatitis. General surgery was consulted, and they performed laparoscopic cholecystectomy once the pancreatitis was resolved and LFT's trending down. She was given Zosyn for cholecystitis. She is now tolerating a regular diet, abdominal pain is resolved , and she is doing well post-operatively. She will get a CMP in one week to reassess liver function, and she will get MRCP in one year to assess for pancreatic cysts. She will follow up with Dr. Hussein (PCP) and Dr. Fischer ( surgeon) within one week. Instructions on what conditions prompt a return to the emergency department were discussed. Pt Condition on Discharge: Good Discharge Disposition: Discharge Home Discharge Instructions DIET: Follow Instructions for: As Tolerated, No Restrictions Activities you can perform: Regular-No Restrictions Follow up Referrals: PCP Follow-up - 1 Week Surgical - 1 Week with Pavel Fischer MD New Orders: COMP MET PROF (CMP) - 1 Week MRI MRCP W & W/O Contrast - 1 Year New Medications: Pantoprazole (Pantoprazole) 40 Mg Tab 40 MG PO DAILY Reflux #30 Ref 0 TAB Ibuprofen (Ibuprofen) 400 Mg Tab 400 MG PO Q6H PRN PAIN SCALE 1 TO 2 #60 TAB Lactobacillus Acidophilus (Acidophilus/l-Sporogenes) 1 Tab Tab 1 TAB PO Q12HR #60 TAB Sennosides (Senna Lax) 8.6 Mg Tab 17.2 MG PO Q12H PRN CONSTIPATION #20 TAB Continued Medications: Aspirin DR (Aspirin 81) 81 Mg Tabdr 81 MG PO HS Ref 0 TAB Atenolol (Atenolol) 100 Mg Tab 100 MG PO HS Blood Pressure Management #30 Ref 0 TAB Losartan (Losartan) 25 Mg Tab 25 MG PO HS Blood Pressure Management #30 Ref 0 TAB Propafenone (Propafenone) 150 Mg Tab 75 MG PO BID Regulate Heart Beat #90 Ref 0 TAB Micky Torres MD R2 Oct 25, 2016 16:38
--- NOTE | 2016-10-25 20:16 | MP ---
cc: JAMES FISCHER MD DATE OF SURGERY: 10/24/2016 PREOPERATIVE DIAGNOSIS Gallstone pancreatitis POSTOPERATIVE DIAGNOSIS Gallstone pancreatitis. PROCEDURE PERFORMED Laparoscopic cholecystectomy. SURGEON Dr. James Fischer. LATCHER Masha Doyle ANESTHESIA GETA. IV FLUIDS 600 cc. ESTIMATED BLOOD LOSS 10 CC. DRAINS None. COMPLICATIONS None. WOUND CLASSIFICATION Clean/contaminated. SPECIMENS Gallbladder sent to pathology. FINDINGS A distended gallbladder, multiple very small gallbladder stones, edematous gallbladder. INDICATION The patient is 71-year-old female who presents with complaints of epigastric and right-sided pain. This pain started a couple days prior and continued to worsen and did not improve. Had some workup in the emergency department including labs showing lipase is over 16,[address] scan showing edematous pancreas with small gallstones and sludge. MRCP did not show any stones in the common bile duct. The patient likely passed these stones. Total bilirubin was initially significantly elevated along with AST and ALT and labs all have trended significantly downward. Therefore, decision was made for laparoscopic cholecystectomy. DETAILS OF THE PROCEDURE The patient was taken to the operating suite and placed in supine position. She was prepped and draped in the usual sterile fashion after induction of general endotracheal anesthesia. A brief timeout was done stating correct patient, procedure and surgical site and we were all in agreement with this. Attention first directed to the umbilicus where a small stab lily incision was made. A Veress needle was used and placed intraabdominally, saline drop test confirmed this. The abdomen insufflated to 15 mmHg pneumoperitoneum. Veress needle changed for a 5 mm trocar. On cursory inspection no evidence of injury. Three other ports were placed. One epigastric 12 mm followed by two 5 mm right subcostal, mid axillary and midclavicular lines. The patient was placed in reverse Trendelenburg airplaned to the left. The gallbladder was identified and noted to be significantly distended, minimal adhesions were taken down to the gallbladder. The cystic artery was skeletonized and two clips were placed proximal and distal, the cystic artery was then transected. The cystic duct was further skeletonized and noted be the only structure left going in the gallbladder. Three clips were placed proximal and one distal. The cystic duct was then transected. The gallbladder was removed from the gallbladder fossa using hook Bovie electrocautery. Hemostasis was obtained with Bovie electrocautery. The gallbladder was placed in the EndoCatch bag. Suction irrigation used and again hemostasis obtained. Once we were content with this, the abdomen was desufflated. The gallbladder then was removed in the EndoCatch bag through the epigastric port. The port sites were closed. The epigastric one was closed with a 0 Vicryl [id number]. Hemostasis was obtained. 4-0 Monocryl used for a subcuticular suture at all port sites. Mastisol and Steri-Strips were placed, a sterile dressing then placed. The patient tolerated the procedure well. There were no intraoperative complications. The patient was extubated and taken stable to the PACU. All lap and instrument counts were correct at the end of the procedure. MD DESIRE Verdugo/BJF /2:01 PM /7:19 PM
== END 2016-10-25 13:34 | disposition home or self-care (01) | DRG 418 ==
LOC: NEPE 08:58 → NEDA 13:21 → N06B 16:53 → N06A 10-22 01:38 → N06B 10-22 01:38
PROVIDERS: ADMIT Family Medicine; ATTEND Family Medicine
PROC: 0FT44ZZ Resection of Gallbladder, Percutaneous Endoscopic Approach (ICD-10-PCS; principal; 2016-10-24 11:28)
DX: K85.10 Biliary acute pancreatitis without necrosis or infection (principal); K80.11 Calculus of gallbladder with chronic cholecystitis with obstruction; D69.6 Thrombocytopenia, unspecified; I48.91 Unspecified atrial fibrillation; K86.2 Cyst of pancreas; I10 Essential (primary) hypertension
CPT/HCPCS: 74177; 74181; 76377; 80048; 80053; 80074; 80076; 81001; 82390; 82728; 83516; 83520; 83540; 83550; 83605; 83690; 84466; 84478; 85025; 85027; 86038; 86256; 87040; 87493; 88304; 93005; 94150; 96365; 96375; C9113; J0131; J1100; J1130; J2250; J2405; J2543; J2710; J3010; J3480; J7030; J8501; Q9967